=== PATIENT | male | born 1945 | race Caucasian/White ===

== ENCOUNTER 2016-11-21 17:30 | Inpatient (IN) | payer MEDICARE, MEDICAID ==
[~2016-11-21] VITALS: Ht 165.1 cm; Wt 136.4 kg
--- NOTE | ~2016-11-21 | DS ---
PATIENT'S NAME: PRIYANKA HECK [facility] AGE: 70 Y [address] ROOM: [place] [address] LOCATION: GPCU ADMIT DATE: 11/21/2016 Discharge Summary DISCHARGE DATE: 12/04/2016 FAMILY PHYSICIAN: Rodney Huggins MD ATTENDING PHYSICIAN: Melissa Jacob FINAL DIAGNOSES: 1. Pericardial effusion status post pericardial window. 2. Diabetes mellitus. 3. Paroxysmal atrial fibrillation. 4. Long-term anticoagulation. 5. Sick sinus syndrome, status post permanent pacemaker [employer]. 6. Acute on chronic diastolic congestive heart failure, resolving. 7. Acute kidney injury and chronic kidney disease 3, resolving. 8. History of chronic obstructive pulmonary disease. 9. Morbid obesity. CONSULTATIONS: 1. Cardiology, Dr. Acosta Shelley. 2. Nephrology, Dr. Fontenot. 3. Cardiothoracic Surgery, Dr. Isidro. PROCEDURES: 1. Cardioversion by Dr. Winston. 2. Pericardial window placement by Dr. Isidro. REASON FOR ADMISSION: This is a 70-year-old male who presented with worsening shortness of breath. The patient has morbid obesity and also CPAP and also obstructive sleep apnea. He was transferred from [place] for higher level of care for worsening shortness of breath. Please see Dr. Jacob's admission H and P for further details. DIAGNOSTIC STUDIES: A transthoracic echocardiogram was done on admission showed normal left ventricular contractility, ejection fraction of 60% to 65%, moderate concentric left ventricular hypertrophy, and grade 1 diastolic dysfunction were noted, left atrium mildly dilated, moderate global pericardial effusion with echocardiographic evidence of cardiac tamponade were noted, dilated IVC with poor inspiratory collapse was detected as well. Repeat transthoracic echocardiogram was done and showed ejection fraction 60% with normal left ventricular contractility. Wall motion abnormalities could not be confidently commented on, severe TRAM noted. Remainder of LV segments revealed [id number] hypertrophy, left atrium and right atrium mildly dilated, mild aortic stenosis noted, no evidence of reoccurring pericardial effusion detected, ascending aorta was mildly dilated, trivial TR and DE detected. PATIENT'S NAME: PRIYANKA HECK [facility] AGE: 70 Y [address] ROOM: [place] [address] LOCATION: GPCU ADMIT DATE: 11/21/2016 Discharge Summary DISCHARGE DATE: 12/04/2016 FAMILY PHYSICIAN: Rodney Huggins MD ATTENDING PHYSICIAN: Melissa Jacob EKG was done on admission showed sinus rhythm with possible left atrial enlargement and possible anterolateral ischemia, slight ST changes. ABGs were done on admission, pH of 7.25 on admission, after treatment, the patient's pH was 7.35 subsequently; pCO2 of 67 on admission, 44 subsequently; pO2 of 42 on admission, 72 subsequently. Serial Accu-Cheks were done since the patient is a diabetic and were in the range of 108 to 199. Cardiac enzymes were done on admission, CPK was within normal range. Troponin T less than 0.04, subsequently was 6.41; proBNP was 6566. Serial CBCs were done. White count was essentially normal throughout the course of this hospitalization. Hemoglobin 9.7 on admission, 9.2 at the time of discharge; platelet counts were within normal range. The patient had serial BMPs done. Sodium was within normal range. Potassium was 5.8 on admission, was treated and subsequently was normal throughout the course of this hospitalization. Bicarb level was within normal range. The patient's BUN was 57 on admission and was 81 by the time of discharge. Creatinine 2.3 on admission. The patient had acute kidney injury. This was treated after consultation with Nephrology. On the day of discharge, creatinine was stabilizing and was 1.7. The patient's baseline creatinine is in the 1.7 range. ERNIE had resolved on the day of discharge. Magnesium level 2.1. Albumin 2.3 on discharge. Phos level was within normal range. GFR 40 on discharge, 28 on admission. ESR 73. Hemoglobin A1c 6.7. The patient was placed on a heparin drip briefly for atrial fibrillation that was monitored with PTT levels. INR 1.09 on admission. UA was done and showed few bacteria initially. UA was later repeated for questionable hematuria and showed blood and rbc's, and this had resolved subsequently. TSH 1.23 and subsequently was 1.78. D-dimer 1.87 on admission. Ultrasound of the chest was done on admission for bilateral pleural effusion and showed minimal volume of pleural fluid with the right and left hemithorax. The patient was intubated after cardiothoracic surgery and endotracheal tube was in normal place. Pericardial drain was in place. Edema and atelectasis were noted on chest x-ray. The patient was subsequently extubated, and a chest x-ray repeated showed post pericardial window. Heart and lungs were stable. Chest x-ray was done for repeat and followup of pericardial effusion and showed cardiomegaly with clear lungs. Chest tubes on the right had been removed without complication. Chest tube on the left was still present. No pneumothorax was noted. The patient underwent a V/Q scan to rule out PE. It was an essentially normal V/Q scan with low probability of pulmonary embolism. Chest x-ray was later repeated since the patient had a pacemaker placement. Chest x-ray showed persistent cardiomegaly, but improved pulmonary vascular status. Left-sided pacemaker in good position without apparent complication. Urine culture was negative and showed contaminants. Pericardial fluid culture PATIENT'S NAME: PRIYANKA HECK [facility] AGE: 70 Y [address] ROOM: [place] [address] LOCATION: GPCU ADMIT DATE: 11/21/2016 Discharge Summary DISCHARGE DATE: 12/04/2016 FAMILY PHYSICIAN: Rodney Huggins MD ATTENDING PHYSICIAN: Melissa Jacob showed no growth and no anaerobes were cultured. AFB smear in pericardial fluid showed no acid-fast bacilli. No fungal elements were noted as well. BAL showed no bacteria and rare white blood cells. HOSPITAL COURSE: This is a 70-year-old male, who was transferred from [place] for worsening shortness of breath. The patient has morbid obesity and also chronic respiratory failure and uses CPAP at .s. The patient presented with worsening shortness of breath. An evaluation was done, and the patient was found to have global pericardial effusion with echocardiographic evidence of cardiac tamponade. Dr. Isidro was consulted immediately. The patient underwent a pericardial window placement. He was intubated in the ICU after the surgery. Subsequently, the drains were taken out, and the patient did not have any complication. Repeat echocardiogram showed resolution of the pericardial effusion. Repeat chest x-ray showed resolution and clearing of his lungs. From a breathing standpoint, the patient was still requiring oxygen by the time of discharge. The patient was using 2 L oxygen by the time of discharge at all times. His worsening shortness of breath had resolved and acute hypoxic respiratory failure had resolved as well. A sepsis workup was initiated, and the patient did not show any signs of pneumonia. White count was normal. The patient developed atrial fibrillation with RVR. He underwent cardioversion with Dr. Winston. He was placed on a heparin drip subsequently for long-term anticoagulation needs. The patient did develop some bradycardia. There was concern for sick sinus syndrome. Dr. Acosta Shelley was consulted. The patient underwent permanent pacemaker placement. Subsequently, the procedure was uncomplicated. The patient was being diuresed by Nephrology off and on with IV diuretics. At the time of discharge, he was placed on his home diuretic regimen and was diuresing nicely. The patient had developed acute kidney injury during this admission. Diuretics were backed off for a few days, and subsequently, the patient's acute kidney injury had resolved by the time of discharge. The patient has chronic kidney disease stage 3. Nephrology followed up closely with the patient. The patient was to be discharged on Thursday, December 01, 2016; however, he developed atrial fibrillation with RVR. The patient's discharge was held. He was placed on Cardizem drip and subsequently was transitioned to p.o. medications, this resolved. The next day, the patient was to be discharged on 12/02/2016 to [facility], however, he developed RENIE. On the day of discharge, the patient's ERNIE had resolved. The patient continued to do well, and he was discharged to [facility] in stable condition by Dr. Khan. Accepting physician was Dr. Gomez. I had contacted Dr. Gomez on Thursday, December 01, 2016, for acceptance. PATIENT'S NAME: PRIYANKA HECK [facility] AGE: 70 Y [address] ROOM: [id number] [place] [id number] LOCATION: GPCU ADMIT DATE: 11/21/2016 Discharge Summary DISCHARGE DATE: 12/04/2016 FAMILY PHYSICIAN: Rodney Huggins MD ATTENDING PHYSICIAN: Melissa Jacob DISCHARGE INSTRUCTIONS: The patient was discharged to [facility] in stable condition by Dr. Khan on 12/04/2016. He is to follow up with his primary care physician, Dr. Rodney Huggins in 3-4 days' time. PCP to check a CBC and a BMP. PCP also to check a digoxin level. The patient to follow up with Dr. Acosta Shelley in 2 weeks in [place]. Follow up with Nephrology in 1 month. The patient is a full code patient. He is on a diabetic and low-salt diet. He is on fluid restriction 1.5 L per day. Calorie count is not needed. The patient is not n.p.o. The patient recently underwent a pacemaker placement. He is advised no lifting or raising his left arm above the head. He is to wear a left arm sling for 1 week. May discontinue on December 07, 2016. PT and OT to evaluate and treat as indicated. O2 p.r.n. to keep sats more than 90%. The patient uses 2 L oxygen at all times. Accu-Cheks a.c. and h.s. advised. The patient does not have a urinary catheter. He may not have alcoholic beverages. Rehab potential is fair. Discharge potential is fair. The patient and family aware of condition and prognosis and were updated by me. The patient was discharged by Dr. Khan. Selene crush appropriate medications. DISCHARGE MEDICATIONS: 1. Allopurinol 300 mg p.o. daily for gout. 2. Amiodarone 200 mg p.o. b.i.d. for atrial fibrillation, new medication. 3. Aspirin 81 mg p.o. daily for CAD, new medication. 4. Lipitor 80 mg p.o. daily for dyslipidemia, new medication. 5. Celexa 20 mg p.o. daily for depression. 6. Pepcid 20 mg p.o. b.i.d. for GERD. 7. Digoxin 62.5 mcg p.o. daily for atrial fibrillation, new medication. 8. Duragesic fentanyl patch 50 mcg transcutaneously every 72 hours for pain. 9. Hydrochlorothiazide 25 mg p.o. daily for hypertension. 10. Mucinex 600 mg p.o. b.i.d. for cough, new medication. 11. Toujeo insulin 20 units subcutaneous at h.s. for diabetes mellitus. 12. Humalog insulin mild sliding scale with Accu-Cheks for diabetes mellitus. 13. Levothyroxine 50 mcg p.o. daily before breakfast for hypothyroidism. 14. Lisinopril 5 mg p.o. daily for hypertension, dose decreased. 15. Claritin 10 mg p.o. daily for allergies. 16. Magnesium oxide 400 mg p.o. b.i.d. for supplement. 17. Lopressor 25 mg p.o. b.i.d. for atrial fibrillation, new medication. 18. Flomax 0.4 mg p.o. q.h.s. for BPH. 19. Demadex 20 mg p.o. 3 days per week on Sunday, Sunday, and Sunday for CHF. 20. Xarelto 15 mg p.o. daily for long-term anticoagulation and atrial fibrillation, new medication. 21. Breo Ellipta 200/25 mcg inhalation 1 puff inhalation every day for COPD. 22. Spiriva HandiHaler 1 vial inhalation every day for COPD. 23. Tylenol 650 mg p.o. q.4 hours p.r.n. pain/fever. PATIENT'S NAME: PRIYANKA HECK [facility] AGE: 70 Y [address] ROOM: [place] [address] [facility] ADMIT DATE: 11/21/2016 Discharge Summary DISCHARGE DATE: 12/04/2016 FAMILY PHYSICIAN: Rodney Huggins MD ATTENDING PHYSICIAN: Melissa Jacob 24. Klonopin 1 mg p.o. q.h.s. for anxiety. 25. Clotrimazole with betamethasone cream 1 application topically every day p.r.n. affected area for rash. 26. Glucagon 1 mg subcutaneous for hypoglycemia p.r.n., new medication. 27. Glucose 16 g p.o. for hypoglycemia p.r.n. 28. Milk of magnesia 30 mL p.o. daily p.r.n. constipation. 29. Ditropan 10 mg p.o. daily for overactive bladder. 30. Vitamin B12 100 mcg p.o. daily for supplement. 31. Vitamin D3 2000 units p.o. daily supplement. 32. Welchol 625 mg p.o. b.i.d. for diabetes. 33. Promethazine/codeine 5-10 mL p.o. q.6 hours p.r.n. cough. 34. Mucinex 1 tablet p.o. b.i.d. 1200/120 mg tab. 35. Pyridoxine 50 mg p.o. daily supplement. 36. Actigall 300 mg p.o. b.i.d. 37. Nitrostat 0.4 mg sublingual q.5 minutes p.r.n. chest pain take 1 tablet may take up to 3 doses every 5 minutes, if pain persists seek medical attention. 38. Symbicort 160/4.5 mcg inhalation 1 puff inhalation every night at bedtime for COPD. This patient was managed by hospitalist, Nephrology, Cardiology, and Cardiothoracic Surgery teams during this admission. VICKIE ANDERSON MD MT/modl /[id number] CC: Brady Gomez MD d: 12/05/16 0415 t: 12/17/16 1539, DISCHARGE SUMMARY
--- NOTE | ~2016-11-21 | ECHO ---
Transthoracic Echocardiography Report (TTE) Demographics Patient Name PRIYANKA HECK Date of Study 11/24/2016 Patient Number [id number] Visit Number [id number] Date of 1945 Room Number G6316 Gender Male Number Age 70 year(s) Referring Joseluis Lara MD Cigarette Carton Sealer Kathy Clark RVT, Physician Nidia Arreguin RDCS MD Renetta Lorenzo MD Physician Interpreting Catrachito Ghosh [employer] Business Analyst Physician Supervising Ordering Catrachito Ghosh MD/MLP Physician Nurse Stress Boiler Out Conclusions Contractility Score Summary Normal Left Ventricular contractility was noted. Summary The estimated left ventricular ejection fraction is 60%.WMAs cannot be confidently commented on.LV internal dimension is normal.Severe TRAM noted.Remainder of LV segments reveal mild to moderate hypertrophy. The left atrium is mildly dilated. The right atrium is mildly dilated. Mild aortic sclerosis. Moderate calcification of the posterior leaflet of the mitral valve with restriction of movement. No evidence of reoccuring pericardial effusion. The ascending aorta appears mildly dilated. The maximum diameter measures 3.9 cm. Trivial TR and RI. Procedure Type of Study TTE procedure:2D Echocardiogram. Procedure Date Date: 11/24/2016 Start: 10:36 PM Study Location: Inpatient Portable Technical Quality: Adequate visualization Indications:Atrial Fibrillation w/ RVR. Appropriate Use Criteria: 8 Patient Status: STAT Rhythm: NSR HR: 90 bpm BP: 112/64 mmHg M-Mode/2D Measurements LV Diastolic Dimension: 4.84 cm LV Systolic Dimension: 3.31 cm LV Septum Diastolic: 2.13 cm LV PW Diastolic: 1.39 cm AO Root Dimension: 2.9 cm Cardiac Output: 7.01 l/min AV Cusp Separation: 2.1 cm RV Diastolic Dimension: 2.69 cm LA volume: 88 ml LVOT: 2.2 cm RV Base: 3.68 cm LVOT VTI: 20.5 cm RV Mid: 8.55 cm LV Stroke volume: 77.89 ml TDI-S': 12.7 cm/s Doppler Measurements AV Peak Velocity: 2.21 m/s MV Peak E-Wave: 1.21 m/s AV Peak Gradient: 19.54 mmHg MV Peak A-Wave: 1.47 m/s AV Mean Gradient: 11 mmHg MV E/A Ratio: 0.82 LVOT Peak Velocity: 1.24 m/s MV P1/2t: 75 msec TR Gradient:17.31 mmHg PV Peak Velocity: 1.47 m/s Estimated RAP:5 mmHg PV Peak Gradient: 8.64 mmHg Estimated RVSP: 22 mmHg Estimated PASP: 22.31 mmHg E' Septal Velocity: 0.07 m/s A' Septal Velocity: 0.12 m/s E' Lateral Velocity: 0.07 m/s A' Lateral Velocity: 0.18 m/s Findings Left Ventricle Severe TRAM and mild to moderate hypertrophy involving the rest of LV wall segments.LV internal dimension is normal.LVEF is probably normal.WMAs cannot be confidently commented on. Right Ventricle Normal right ventricle structure and function. Left Atrium The left atrium is mildly dilated. There is no evidence of patent foramen ovale or atrial septal defect by color Doppler. Right Atrium The right atrium is mildly dilated. IVC measures 1.96 cm with inspiratory collapse. Mitral Valve Moderate calcification of the posterior leaflet of the mitral valve with restriction of movement. Aortic Valve The aortic valve is mildly sclerotic. Tricuspid Valve Trivial tricuspid regurgitation by color Doppler. Pulmonic Valve Trivial pulmonic valve regurgitation by color Doppler. Pericardial Effusion No evidence of reoccuring pericardial effusion. Miscellaneous The ascending aorta appears mildly dilated. The maximum diameter measures 3.9 cm. Pleural Effusion No evidence of pleural effusion. Contractility Score LV regional wall motion:(0-Non visualized 1-Normal 2-Hypokinesis 3-Akinesis 4-Dyskinesis 5-Aneurysm) Signature dtt: Davina Winston dtd: 11/24/16 2236 Physician Self Edit
--- NOTE | ~2016-11-21 | ECHO ---
Transthoracic Echocardiography Report (TTE) Demographics Patient Name PRIYANKA HECK Date of Study 11/21/2016 Patient Number [id number] Visit Number [id number] Date of 1945 Room Number G6334 Gender Male Number Age 70 year(s) Referring [place] Agent Jamey HOUGH, RDCS Physician Karen Physician Interpreting Daphney Shane MD Tool Honing Machine Set Up Operator Physician Supervising Ordering Nidia Arreguin MD, MD/MLP Physician Nurse Stress Poacher Wringer Operator Conclusions Contractility Score Summary Normal Left Ventricular contractility was noted. Summary The estimated left ventricular ejection fraction is 60-65%. Moderate concentric left ventricular hypertrophy. Diastolic assessment reveals Grade I diastolic dysfunction. The left atrium is mildly dilated. Moderate global pericardial effusion. There is echocardiographic evidence of cardiac tamponade. Dilated IVC with poor inspiratory collapse. Procedure Type of Study TTE procedure:2D Echocardiogram, M-Mode, Doppler , Color Doppler. Procedure Date Date: 11/21/2016 Start: 06:45 PM Study Location: Inpatient Portable Technical Quality: Adequate visualization Indications:Pericardial effusion. Appropriate Use Criteria: 9 Patient Status: STAT HR: 61 bpm BP: 133/70 mmHg M-Mode/2D Measurements LV Diastolic Dimension: 3.84 cm LV Systolic Dimension: 2.59 cm LV Septum Diastolic: 1.53 cm LV PW Diastolic: 1.63 cm AO Root Dimension: 2.9 cm Cardiac Output: 7.67 l/min AV Cusp Separation: 1.7 cm RV Diastolic Dimension: 2.51 cm LA volume: 67 ml LVOT: 2.2 cm RV Base: 2.29 cm LVOT VTI: 33.1 cm RV Mid: 2.36 cm LV Stroke volume: 125.76 ml TAPSE: 2.48 cm TDI-S': 20.2 cm/s Doppler Measurements AV Peak Velocity: 1.85 m/s MV Peak E-Wave: 1.1 m/s AV Peak Gradient: 13.69 mmHg MV Peak A-Wave: 1.34 m/s AV Mean Gradient: 7 mmHg MV E/A Ratio: 0.82 LVOT Peak Velocity: 1.21 m/s MV P1/2t: 82 msec PV Peak Velocity: 1.08 m/s E' Septal Velocity: 0.07 m/s PV Peak Gradient: 4.67 mmHg E' Lateral Velocity: 0.08 m/s A' Septal Velocity: 0.09 m/s A' Lateral Velocity: 0.09 m/s Findings Left Ventricle Moderate concentric left ventricular hypertrophy. Diastolic assessment reveals Grade I diastolic dysfunction. Right Ventricle Normal right ventricle structure and function. Left Atrium The left atrium is mildly dilated. Right Atrium Normal right atrial size. Mitral Valve Trivial mitral regurgitation by color Doppler. Aortic Valve The aortic valve is mildly sclerotic. Tricuspid Valve Trivial tricuspid regurgitation by color Doppler. Pulmonic Valve Trivial pulmonic valve regurgitation by color Doppler. Pericardial Effusion Moderate global pericardial effusion. No echocardiographic evidence of cardiac tamponade. Miscellaneous Dilated IVC with poor inspiratory collapse. Pleural Effusion No evidence of pleural effusion. Contractility Score LV regional wall motion:(0-Non visualized 1-Normal 2-Hypokinesis 3-Akinesis 4-Dyskinesis 5-Aneurysm) Signature dtt: cAosta Shelley (cardio) dtd: 11/21/16 1845 Physician Self Edit
--- NOTE | ~2016-11-21 | HP ---
PATIENT'S NAME: PRIYANKA HECK [facility] AGE: 70 Y [address] ROOM: [id number] [place], [place] [address] LOCATION: GPCU ADMIT DATE: 11/21/2016 History & Physical DISCHARGE DATE: FAMILY PHYSICIAN: PHYSICIAN, UNKNOWN ATTENDING PHYSICIAN: LOUIS CAROLINA DATE OF SERVICE: CHIEF COMPLAINT: Worsening shortness of breath. HISTORY OF PRESENT ILLNESS: This is a 70-year-old male with history of obstructive sleep apnea on CPAP at night and also 4 L of oxygen at night, morbidly obese, who is transferred from [place] to [facility] for higher level of care. History as obtained from the patient, he reported since yesterday that he has been more short of breath requiring oxygen; however, story as obtained from the EMS team through the home health who goes into visit the patient reported that the patient's symptoms had started since last week, which is for the past 6 days. The patient has been more short of breath during the day time requiring continuous use of oxygen. At baseline, he does not use oxygen during the daytime, only at nighttime. So, for the past 6 days, family has been putting the patient on 4 L of oxygen. However, today, when the home health nurse went in to visit with the patient, they had to increase the oxygen to 5 L of nasal cannula still with the saturation in the late 80s. So, based on this, they decided to transfer the patient into the emergency room. On arrival into the emergency room, at [place], the patient was found to be hypoxic and also short of breath. He was put on BiPAP and his ABG prior to being on BiPAP was pCO2 of 67.2, pH of 7.22, PO2 of 101. One hour later, the repeat ABG was pCO2 of 57.2 with a pH of 7.26 and PO2 was 64. They did get a CT of the chest without contrast, which revealed mild pericardial effusion. Based on this, they decided to contact Dr. Shelley as probably this may be responsible for the patient's symptoms. CT chest also did show some bilateral [id number] pleural effusion as well. The patient also did note he has chronic cough; however, for the last 1-2 months the frequency of the cough has increased as well as the production of the phlegm. He describes the color as yellowish. Denies fever. Denies any chest pain. Denies abdominal pain. Denies any increase in his leg swelling, which is chronic and denies abdominal distention. Denies headache or neck pain. The patient reports he stopped smoking since 1981; however, his is still an active smoker. Denies diarrhea or urinary symptoms. He denies paroxysmal nocturnal dyspnea. He states he usually sleeps with 1-2 pillows. REVIEW OF SYSTEMS: The 13 elements of review of systems were asked and as documented in the HPI. PATIENT'S NAME: PRIYANKA HECK [facility] AGE: 70 Y [address] ROOM: [id number] [place] [id number] LOCATION: GPCU ADMIT DATE: 11/21/2016 History & Physical DISCHARGE DATE: FAMILY PHYSICIAN: PHYSICIAN, UNKNOWN ATTENDING PHYSICIAN: LOUIS CAROLINA The others are negative. PAST MEDICAL HISTORY: Chronic obstructive sleep apnea, essential hypertension, diabetes, history of myocardial infarction, depression, hypomagnesemia, and chronic bilateral lower extremity edema. PAST SURGICAL HISTORY: Coronary stent placement. SOCIAL HISTORY: He lives with his . Drinks wine occasionally once per week. Stopped smoking since 1981. However, still smokes, so he is a secondhand smoker. FAMILY HISTORY: Father at the age of 74 from myocardial infarction. Mother too has . Her brother with hypertension. PHYSICAL EXAMINATION: VITAL SIGNS: In PCU, oxygen saturation 91% on 45% of FiO2, heart rate 61, blood pressure 133/70, respiratory rate 21, and temperature 97.8. GENERAL: Reveals a morbidly obese male who is in mild respiratory distress on BiPAP. He is alert, awake, oriented x3. NEUROLOGIC: Cranial nerves 2 through 12 are intact bilaterally. Sensory is intact bilaterally. Power is 4/5 in all the extremities. HEENT: Normocephalic, atraumatic. Pupils are equal and reactive to light bilaterally. Pharynx is unable to examine thoroughly because of the BiPAP mask that is on. NECK: Short, it is obese. Ears: No obvious ear discharge or drainage. CARDIOVASCULAR: Normal S1 and S2. Regular rate and rhythm. Heart sounds are distant, probably secondary to the obese chest wall. CHEST: Decreased breath sounds globally, likely secondary due to obese chest wall. ABDOMEN: Distended, is obese. No area of tenderness, no palpable organomegaly. Positive bowel sounds. EXTREMITIES: He has 1+ bilateral lower extremity pitting pedal edema. No joint swelling or erythema or tenderness. SKIN: No rash or skin breakdown. LABORATORY DATA: Labs at the referral center: ABG as documented in my H and P, WBC 10.9, hemoglobin 9.7, hematocrit 31.9, and platelets are 181. CK-MB 2.1. Troponin 0.031, CRP 3.7, BNP 101, total protein 8.0, albumin 3.3, globulin 4.7. EKG: Normal sinus rhythm at a rate of 71. PATIENT'S NAME: PRIYANKA HECK [facility] AGE: 70 Y [address] ROOM: [id number] [place] [id number] [facility] AD[facility] DATE: 11/21/2016 History & Physical DISCHARGE DATE: FAMILY PHYSICIAN: PHYSICIAN, UNKNOWN ATTENDING PHYSICIAN: LOUIS CAROLINA ASSESSMENT AND PLAN: This is a 70-year-old male, who comes in with worsening shortness of breath. 1. Acute hypoxic respiratory failure, probably secondary to chronic obstructive pulmonary disease exacerbation. However, given the patient's body habitus, he is also at risk of a pulmonary embolism. We will check for D-dimer though this may be elevated secondary to the patient's acute on chronic kidney disease. If it is, then we will most probably get a V/Q scan. Also, differential for acute hypoxic respiratory failure, also concerned for pericardial effusion seen on CT of the chest. The patient is getting an echocardiogram done now. Dr. Shelley is going to follow up and manage accordingly. The third differential also could be secondary to bilateral pleural effusion on CT chest imaging. We will get a chest ultrasound in the morning to further evaluate the severity and the degree of the pleural effusion, present on admission. 2. Chronic obstructive pulmonary disease exacerbation, present on admission. We will start the patient on some Solu-Medrol and also on Levaquin. We will also get a Pulmonary consult. 3. Acute kidney injury versus acute kidney injury on chronic kidney disease. The patient's baseline creatinine is unknown. We will gently hydrate the patient and we will continue to monitor the creatinine level. 4. Diabetes type 2 with hypoglycemia, stable; however, with the Solu-Medrol, which we are going to start, we will put the patient on NovoLog sliding scale aggressive. Note present on admission. 5. Essential hypertension, is stable. Blood pressure is controlled. We will continue the patient on his medication. 6. Obstructive sleep apnea. The patient is currently on BiPAP, we will continue him on this. 7. Acute hypercarbic respiratory failure, present on admission. The patient is currently on BiPAP. We will also consult Pulmonary for further management given the patient's degree of morbid obesity. However, the hypercarbia seems to be improving from his last ABG, which was done at the referral center. We will recheck ABG 1 hour since he has been put on the BiPAP here. The line of management was explained to the patient whose questions were answered and had no further questions at this time. MD JENNA MIRANDA/melody /[id number] D: [id number] T: [id number] HISTORY & PHYSICAL
--- NOTE | ~2016-11-21 | CON ---
PATIENT'S NAME: PRIYANKA HECK [facility] AGE: 71 Y [address] ROOM: [id number] [place], [place] [address] LOCATION: GPCU ADMIT DATE: 11/21/2016 Consultation DISCHARGE DATE: 12/04/2016 FAMILY PHYSICIAN: Rodney Huggins MD ATTENDING PHYSICIAN: Melissa Jacob DATE OF CONSULTATION: 11/22/2016 REFERRING PHYSICIAN: Acosta Shelley MD INDICATION: COPD exacerbation. HISTORY OF PRESENT ILLNESS: This is a 70-year-old male, transferred from [place] for higher level of care. Per report, the patient was noted to have increased shortness of breath and the family was needing to put on his oxygen during the day since last . He normally wears oxygen just at night. He reports no change in shortness of breath though. He has noted an increased cough over the last 2 months. He normally has a chronic cough with yellow sputum at baseline. He has been having home health coming in and recently they noted his oxygen saturations were as low as 80 despite 5 L, so he was taken to the ER for further evaluation. The initial ABG upon arrival was pH of 7.25, pCO2 67, PO2 42, bicarb 29.4, and base excess 0.6. He was placed on BiPAP at that time and then a repeat ABG showed a pH of 7.3, pCO2 59, PO2 of 80, bicarb 29, and base excess 1.4. Recent echo shows an EF of 60-65% with moderate LVH, diastolic dysfunction grade 1, moderate global pericardial effusion. He has a history of COPD, ROSE with CPAP for the last 6 years at least, CAD with NY and PCI, hypertension, and diabetes. Last PFTs were last year, and he follows with Dr. Orta for his COPD. He has typical home regimen includes Symbicort, Spiriva, and albuterol. He reports no history of exacerbations or hospitalizations in regard to his COPD. He normally uses 4 L with his CPAP, but still complains of excessive daytime sleepiness. Overall, he is fairly sedentary at home and uses a cane and/or walker. He also has a history of tobacco use for the last 25 years, 1 pack per day and quit in 1981; however, his does still smoke in the home. CT images were obtained and showed a pericardial effusion with small bilateral pleural effusions as well as bilateral atelectasis and possible infiltrates. Overall, the patient denies any wheezing, hemoptysis, fevers, or chills. He has noted increased lower extremity edema. PAST MEDICAL HISTORY: COPD, ROSE with CPAP, CAD with history of [place] and PCI, hypertension, diabetes, former tobacco use, nocturnal hypoxia, and morbid obesity. ALLERGIES: PATIENT'S NAME: PRIYANKA HECK [facility] AGE: 71 Y [address] ROOM: [id number] [place] [address] LOCATION: GPCU ADMIT DATE: 11/21/2016 Consultation DISCHARGE DATE: 12/04/2016 FAMILY PHYSICIAN: oRdney Huggins MD ATTENDING PHYSICIAN: Melissa Jacob SEE OCT. MEDICATIONS: See OCT. SOCIAL HISTORY: He lives with his and drinks alcohol occasionally. He stopped smoking in 1981 but prior to that, he was 1 pack per day for 25 years. His does still smoke in the house. FAMILY HISTORY: His father at the age of 74 from an [place]. His mother has also . His brother has hypertension. REVIEW OF SYSTEMS: A 12-point review of systems is negative except for what is noted in the HPI. PHYSICAL EXAMINATION: VITAL SIGNS: Blood pressure 159/78, pulse 72, respirations 20, temperature 98.1, he is 95% with FiO2 of 45%. GENERAL: This is a 70-year-old, well-developed, well-nourished, overweight male who is alert and oriented x3, and appears in no acute distress at the time of exam. HEENT: Head: Normocephalic and atraumatic. Eyes, clear. NECK: Supple. No adenopathy. No carotid bruits or JVD. LUNGS: Decreased breath sounds throughout. HEART: Regular rate and rhythm without murmur, gallop, rub. ABDOMEN: Soft, nontender, and nondistended. Bowel sounds x4. EXTREMITIES: No cyanosis or clubbing. 1+ bilateral lower extremity edema. ASSESSMENT AND PLAN: 1. Acute on chronic hypoxic and hypercapnic respiratory failure, multifactorial from chronic obstructive pulmonary disease and pneumonia with bilateral atelectasis and fluid overload. 2. Bilateral pleural effusions, small, due to atelectasis and fluid overload. 3. Pericardial effusion, moderate. 4. Possible pneumonia, community acquired type, on Levaquin. 5. Chronic obstructive pulmonary disease with unknown severity, without exacerbation. 6. Acute kidney injury on (?)chronic kidney disease. 7. Obstructive sleep apnea, on CPAP chronically. PLAN: Okay to proceed with surgery because of imminent cardiac tamponade. May need PATIENT'S NAME: PRIYANKA HECK [facility] AGE: 71 Y [address] ROOM: [place] [address] LOCATION: GPCU ADMIT DATE: 11/21/2016 Consultation DISCHARGE DATE: 12/04/2016 FAMILY PHYSICIAN: Rodney Huggins MD ATTENDING PHYSICIAN: Melissa Jacob to be extubated on BiPAP and he could also benefit from increased PEEP during surgery if blood pressure allows. We will reassess after surgery regarding the need for diuresis, bronchodilator, and steroids. Thank you for the consult and opportunity to participate in the patient's care. ETIENNE BONE APRN FOR MD JACOB BELL/modl /[id number] d: 12/25/162029 t: 01/09/17 1400, CONSULTATION REPORT
--- NOTE | ~2016-11-21 | CON ---
PATIENT'S NAME: PRIYANKA HECK [facility] AGE: 70 Y [address] ROOM: [id number] [place], [place] [address] LOCATION: GPCU ADMIT DATE: 11/21/2016 Consultation DISCHARGE DATE: FAMILY PHYSICIAN: Rodney Huggins MD ATTENDING PHYSICIAN: LOUIS CAROLINA REFERRING PHYSICIAN: Acosta Shelley MD REASON FOR CONSULTATION: Atrial fibrillation. HISTORY OF PRESENT ILLNESS: This is a patient known to Dr. Shelley with history of inferior wall myocardial infarction in 2004, in which he underwent a left heart catheterization in [place], [place] with PTCA and stenting of the left circumflex. He also carries a history of COPD, hypertension, morbid obesity, dyslipidemia, and obstructive sleep apnea. On November 21, he was admitted to [facility] as a transfer from [place]. He had been more short of breath and requiring increased oxygen and therefore he was transferred to a higher level of care. Normally, he did not wear any oxygen at home on a routine basis, but he did have some that he used at nighttime, he had been using it during the day as well. His oxygen saturations had dropped into the 80s and therefore he was seen by his primary care physician. Upon transfer, he was found to be hypoxic, he was put on BiPAP, ABGs were done showing a pCO2 of 67.2 with pH of 7.22. He then underwent a CT of the chest which revealed mild pericardial effusion. He was transferred after they had found the pericardial effusion for further evaluation. He was then seen by Dr. Isidro, for which he underwent a pericardial window and tolerated that procedure well. He was diuresed and there was some concern about elevated creatinine, therefore Nephrology was consulted. His creatinine did increase to 2.3 at the time of the consult. It was felt that he was prerenal. On 11/24, Rapid Response was called because of increased shortness of breath. It was concerned about him having a pulmonary embolus. V/Q scan ruled that as negative or low probability. He was also found to have rapid AFib and underwent a DC cardioversion for the AFib. He was also placed on an amiodarone infusion at that time. Since then, he had had episodes of paroxysmal atrial fibrillation with rapid ventricular response which he does not tolerate very well. He denies any exertional chest pain. He is short of breath with minimal activity, but seems to be very weak, I suspect that he has been ill for quite some time. He has not had any new orthopnea. He does use his CPAP faithfully at night time. There is no report of presyncope or syncopal episodes and he has not had problems with lightheadedness or dizziness. PAST MEDICAL HISTORY: 1. Coronary artery disease. He has had a myocardial infarction. 2. Obstructive sleep apnea, using CPAP. 3. Hypertension. PATIENT'S NAME: PRIYANKA HECK [facility] AGE: 70 Y [address] ROOM: [place] [address] LOCATION: GPCU ADMIT DATE: 11/21/2016 Consultation DISCHARGE DATE: FAMILY PHYSICIAN: Rodney Huggins MD ATTENDING PHYSICIAN: LOUIS CAROL[place] 4. Hyperlipidemia. 5. Paroxysmal atrial fibrillation. 6. Pericardial effusion post pericardial window. 7. COPD. 8. Hypomagnesium. 9. Chronic bilateral lower extremity edema. 10. Diabetes mellitus. 11. Essential hypertension. PAST SURGICAL HISTORY: Per HPI. He had a colonoscopy and an EGD in 2008, epidural steroid injection in 2009. He has had angioplasty x2 with 3 stents. FAMILY HISTORY: Father probably had heart disease and mother is , etiology is unknown. He has siblings, but he does not know their health history. SOCIAL HISTORY: He is . He is a former smoker, he smoked cigarettes as well as a pipe, he smoked for 19 years. He does not drink alcohol. REVIEW OF SYSTEMS: Per HPI. A 13-point review was done. HEMATOLOGIC: He is a little bit anemic, most likely secondary to chronic kidney failure. PULMONARY: He does have COPD and uses CPAP. PHYSICAL EXAMINATION: VITAL SIGNS: His weight on admission was 310. He is 5 feet 5 inches. Blood pressure is 133/70, heart rate is 61. SKIN: Warm, dry, and pink. He does have full luevano. NECK: Soft and supple. LUNGS: Lung sounds were diminished but clear. CV: Currently is regular rate and rhythm with normal S1, S2. His telemetry showing that he is in sinus rhythm. ABDOMEN: Morbidly obese. EXTREMITIES: Show trace to 1+ peripheral edema. He does have a De catheter in place. LABORATORY DATA: His most recent echocardiogram shows a normal EF of 60%, mild aortic stenosis, moderate calcification of the mitral valve with restriction of the movement, with resolution of the pericardial effusion. His CBC: 10.6 hemoglobin, 10.8 white count. His BUN was 42, creatinine 1.3, potassium is 4.4, magnesium 1.8. ESR is 73. He is on heparin as well as amiodarone. He had a TSH done on PATIENT'S NAME: PRIYANKA HECK [facility] AGE: 70 Y [address] ROOM: [id number] [place] [address] [facility] DATE: 11/21/2016 Consultation DISCHARGE DATE: FAMILY PHYSICIAN: Rodney Huggins MD ATTENDING PHYSICIAN: LOUIS CAROLINA admission which was normal. ASSESSMENT: 1. Paroxysmal atrial fibrillation. We are going to continue the amiodarone once the infusion is complete. We will start him on p.o. dose. We will discuss when it is okay to start him on NOAC therapy. 2. Chronic obstructive pulmonary disease. He will continue with his current treatment and CPAP therapy. 3. Diabetes mellitus. He will continue with current medications. The assessment and plan, history of present illness, and physical exam are per Dr. Shelley. We would like to thank Dr. Carolina for allowing us to participate in the patient's care. LO ALVAREZ APRN FOR MD LUCAS BYNUM/meredithl /[id number] d: 11/28/162306 t: 12/22/1621, CONSULTATION REPORT
--- NOTE | ~2016-11-21 | CON ---
PATIENT'S NAME: PRIYANKA HECK [facility] AGE: 70 Y [address] ROOM: [address] [place], [place] [address] LOCATION: GPCU ADMIT DATE: 11/21/2016 Consultation DISCHARGE DATE: FAMILY PHYSICIAN: Rodney Huggins MD ATTENDING PHYSICIAN: LOUIS CAROLINA DATE OF CONSULTATION: 11/25/2016 REFERRING PHYSICIAN: Acosta Shelley MD REQUESTING PHYSICIAN: Davina Winston MD. REASON FOR CONSULTATION: Elevated BUN and creatinine. HISTORY OF PRESENT ILLNESS: The patient is a 70-year-old, morbidly obese, white male with a history of diabetes disease diagnosed about a year ago. He also has history of hypertension for quite some time. In 2009 when he was in the hospital, his creatinine had gone up to a maximum 1.6. I do not have the records available at this time, but this patient did have an ultrasound which showed some cortical thinning of the kidneys. The patient does have obstructive sleep apnea. He got admitted to the hospital this time with hypoxic respiratory failure from exacerbation of COPD. His outpatient medication does include Prinivil. He denies taking any nonsteroidals or PINZON-2 inhibitors, but he is normally on narcotics. His creatinine during this admission was up to 2.3 and today it has improved to 1.4. Dr. Winston was concerned because of persistent elevation of creatinine and asked me to see this gentleman for a nephrology consultation. REVIEW OF SYSTEMS: GENERAL: He denies any fever, chills, or rigors. HEENT: Denies any sore throat or sinus congestion. CARDIOVASCULAR: Denies any chest pain, but he has palpitation. RESPIRATORY: Denies any shortness of breath at rest, but he has dyspnea on exertion. GI: Denies any abdominal pain, nausea, or vomiting. : Denies any dysuria. He has some symptoms suggestive of prostatism. MUSCULOSKELETAL: Denies any joint pain or swelling. SKIN: Denies any rash or pruritus. IMMUNOLOGIC: Denies any allergies or hay fever. LYMPHATIC: Denies any lymph node enlargement. HEMATOLOGIC: Denies any easy bruising. ENDOCRINE: Denies any heat or cold intolerance. PSYCHIATRY: Denies any sadness, crying spells, poor concentration, or panic PATIENT'S NAME: UMANG, [facility] AGE: 70 Y [address] ROOM: [place] [address] LOCATION: GPCU ADMIT DATE: 11/21/2016 Consultation DISCHARGE DATE: FAMILY PHYSICIAN: Rodney Huggins MD ATTENDING PHYSICIAN: LOUIS CAROLINA. ALLERGIES: NO KNOWN DRUG ALLERGIES. MEDICATIONS: 1. Albuterol inhaler 2.5 q.6 hours. 2. Dulera one puff q.h.s. handheld as prescribed. 3. Heparin intravenously per protocol. 4. Levaquin 750 mg IV q.h.s. 5. Aspirin 81 mg a day. 6. Celexa 20 mg a day. 7. Claritin 10 mg a day. 8. Deltasone 20 mg a day. 9. Flomax 0.4 mg q.h.s. 10. Humibid LA 600 mg twice a day. 11. Levothyroxine 50 mcg a day. 12. Lipitor 80 mg a day. 13. Pepcid 20 mg a day. 14. Zestril 5 mg a day. 15. Zebeta 5 mg half a day. 16. Zyloprim 300 mg a day. 17. NovoLog 100 units a day. 18. Duragesic 50 mcg a day. PAST MEDICAL HISTORY: Morbid obesity, diabetes mellitus, obstructive sleep apnea, COPD, coronary artery disease, status post myocardial infarction, depressive illness, hypomagnesemia, history of acute kidney injury in 2009, chronic bilateral lower extremity edema. PAST SURGICAL HISTORY: Coronary artery stent placement. SOCIAL HISTORY: The patient lives at home with his . Quit smoking in 1981. Occasionally drinks alcohol. FAMILY HISTORY: Father at the age of 74 because of myocardial infarction. Brother has history of hypertension. His brother who had diabetes, also on dialysis. PHYSICAL EXAMINATION: GENERAL APPEARANCE: A 70-year-old, morbidly obese, white male, lying in the hospital bed, not in acute distress. PATIENT'S NAME: UMANG [facility] AGE: 70 Y [address] ROOM: [place] [address] LOCATION: GPCU ADMIT DATE: 11/21/2016 Consultation DISCHARGE DATE: FAMILY PHYSICIAN: Rodney Huggins MD ATTENDING PHYSICIAN: LOUIS CAROLINA VITAL SIGNS: Temperature 98.3, pulse 92, systolic blood pressure 154, diastolic 87. HEAD: Normocephalic. EENT: Pupils are round and equal. Normal eyelid and conjunctivae. Oral cavity clear. Moist mucosa. NECK: Trachea is central. No thyromegaly. Unable to evaluate jugular venous pulsation. HEART: Heart sounds are audible in all the areas without any gallop or murmur. Pulses irregularly irregular. LUNGS: Diminished breath sounds as whole due to obesity. No rales or expiratory wheeze. ABDOMEN: Obese, soft, nontender. Could not palpate the liver or spleen. EXTREMITIES: He has no clubbing or cyanosis. SKIN: No sign of vasculitis. LYMPHATICS: I did not examine lymphatics. He does have 1+ leg edema bilaterally. NEUROLOGIC: He is alert and grossly nonfocal. HIGHER PSYCHIATRIC FUNCTION: Normal speech and memory. LABORATORY DATA: Sodium 142, potassium 4.5, chloride 100, bicarb 27, BUN 50, creatinine 1.4. Calcium 8.7, albumin 2.4, phosphorus of 2.8. ASSESSMENT: 1. Acute kidney injury most likely this is from prerenal etiology. The patient has been on Prinivil, he came in with acute hypoxic respiratory failure and chronic obstructive pulmonary disease exacerbation. Creatinine went up to 2.3 and now gradually improving to 1.4 now. His baseline is probably 1.1. 2. Diabetes mellitus. 3. Hypertension. 4. Coronary artery disease. 5. Obstructive sleep apnea. 6. Leg edema. PLAN: I explained to the patient that he has history of diabetes, hypertension, coronary artery disease. 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 His ultrasound from 2009 did show some cortical thinning. His kidney therefore vulnerable to volume changes. Advise him not to take any nonsteroidals or PINZON- 2 inhibitors ever. I agree with continuing him on CHACHO inhibitor for renal protection. I advised him to have good control of his diabetes and blood pressure and also to lose weight. We could use p.r.n. dose of diuretics for him for his leg edema. The plan is to watch his salt and water intake. The patient has 1+ protein in the urine probably from diabetes. Note is that he PATIENT'S NAME: PRIYANKA HECK [facility] AGE: 70 Y [address] ROOM: [id number] [place], [place] [address] [facility] ADMIT DATE: 11/21/2016 Consultation DISCHARGE DATE: FAMILY PHYSICIAN: Rodney Huggins MD ATTENDING PHYSICIAN: LOUIS CAROLINA had plenty of rbc's in the urine. He has a De catheter, so maybe this is traumatic in nature. I would like to thank Dr. Winston for allowing me to participate in this patient's care. M MD TRESSA RUIZ/melody /[id number] CC: Rodney Huggins MD d: 11/25/16 1617 t: 11/27/16 0853, CONSULTATION REPORT
--- NOTE | ~2016-11-21 | OR ---
PATIENT'S NAME: PRIYANKA GONZALEZ [facility] AGE: 70 Y [address] ROOM: [address] [address] LOCATION: GPCU ADMIT DATE: 11/21/2016 OR/Procedure Report DISCHARGE DATE: FAMILY PHYSICIAN: Rodney Huggins MD ATTENDING PHYSICIAN: LOUIS CAROLINA SURGEON: Raul Winters DO ELASTIC ATTACHER CHAINSTITCH: DATE OF PROCEDURE: 11/22/2016 PREOPERATIVE DIAGNOSIS: Pericardial effusion with tamponade changes on echocardiogram. POSTOPERATIVE DIAGNOSIS: Pericardial effusion with tamponade changes on echocardiogram. PROCEDURE: Pericardial subxiphoid approach to pericardial window. REFERRING: Acosta Shelley MD. BRIEF HISTORY: Mr. Gonzalez is a 70-year-old white male with the above-noted diagnosis. He has been brought to the operative suite today in an urgent fashion for pericardial effusion. He is currently on BiPAP, markedly short of breath. Echocardiogram has shown a large volume pericardial effusion with tamponade changes. He was intubated without difficulty and his pressures remain quite stable, sterilely prepped and draped in usual fashion and the incision was carried out over the xiphoid onto the anterior epigastrium and dissection was carried out through the adipose tissue through the fascia. We then divided the cartilaginous xiphoid and retracted the area and I identified the tense pericardium. We then opened the pericardium sharply and the fluid was yellowish and serous in nature. No evidence of blood or pericardial tissue changes were noted. An aliquot of fluid was sent for microbiologic and cytologic sampling. We also took the portion of the pericardium as well and placed a 19-Estonian Richardson drain through separate stab incision in the pericardial space. The incision was then closed in a layered fashion 0 Vicryl, 2-0 Vicryl, and 4-0 Monocryl. Chest tube was secured with 2-0 silk and the patient was transferred to the intensive care unit in an intubated fashion secondary to his hypoxia pre-existing and marked work of breathing changes. We would allow him to weaned slowly from the ventilator. He tolerated overall very well and was transferred without incident. RAUL WINTERS DO PATIENT'S NAME: PRIYANKA GONZALEZ [facility] AGE: 70 Y [address] ROOM: [place] [address] [facility] ADMIT DATE: 11/21/2016 OR/Procedure Report DISCHARGE DATE: FAMILY PHYSICIAN: Rodney Huggins MD ATTENDING PHYSICIAN: LOUIS CAROLINA/melody /[id number] d: 11/28/16 1858 t: 11/29/16 0743, OPERATIVE SUMMARY
--- NOTE | ~2016-11-21 | OR ---
PATIENT'S NAME: PRIYANKA GONZALEZ [facility] AGE: 70 Y [address] ROOM: [place] [address] LOCATION: GPCU ADMIT DATE: 11/21/2016 OR/Procedure Report DISCHARGE DATE: 12/04/2016 FAMILY PHYSICIAN: Rodney Huggins MD ATTENDING PHYSICIAN: Melissa Jacob SURGEON: Acosta Shelley MD DINING ROOM HOST/HOSTESS: DATE OF PROCEDURE: 11/28/2016 INDICATIONS: Sick sinus syndrome with prolonged pauses PROCEDURE: Dual chamber pacemaker implantation COMPLICATIONS: None PROCEDURE/FINDINGS: Mr. Gonzalez was brought to the cardiac catheterization lab in the fasting state and prepped draped in the normal manner. 1% lidocaine was used for local skin analgesia to the left infraclavicular region. Subsequently an 18 gauge Cook needle was advanced into the left subclavian vein. 0.025 wire was placed. Needle was removed. A second access was also obtained with an 18 gauge Cook needle. 0. 025 wire was placed. The proximal ends of these wires attached to the surgical gown with a hemostat. Attention was then turned towards creation of the pacemaker pocket where additional 1% lidocaine was given. Next, a #11 blade was used for primary skin incision. Using Bovie cautery as well as blunt dissection, pectoralis fascia was identified. This is entered into and dissected both cephalad as well as caudally. The previously placed 0.025 wires were brought through the skin into the pacemaker pocket. First wire had a 7F sheath placed onto it. Wire and dilator were removed. Subsequently the right ventricular lead was placed. This is a [place] [employer], model #7742. Serial #[id number]. Thresholds were obtained showing a sensing R wave of 13 mV, threshold 0.5 at 0.4 milliseconds pulse width. Impedance is 752 ohms. The anchor sleeve was sewn into the pectoralis muscle with two interrupted sutures of zero silk. Following this the second wire had a 7F sheath placed onto it. Wire and dilator were removed. Using fluoroscopic guidance, the right atrial lead was placed. This is a [place] [employer], [employer], model #7741, serial #[id number]. Thresholds were obtained showing a sensing P wave of 2.1 mV, threshold of 0.9 volts at 0.4 milliseconds pulse width, impedance of 634 ohms. The anchor sleeve was sewn into the pectoralis muscle with two interrupted sutures of zero silk. Following this both of these leads were then connected to the pacemaker generator. This is a [place] [employer]SSENT[employer], model #L111, serial PATIENT'S NAME: PRIYANKA GONZALEZ [facility] AGE: 70 Y [address] ROOM: [place] [address] LOCATION: GPCU ADMIT DATE: 11/21/2016 OR/Procedure Report DISCHARGE DATE: 12/04/2016 FAMILY PHYSICIAN: Rodney Huggins MD ATTENDING PHYSICIAN: Melissa Jacob #[id number]. The generator with the connected leads were then placed into the pacemaker pocket. Subcutaneous tissue was closed with 2-0 Vicryl in a running fashion. Following this the subcuticular layer was closed with 4.0 Vicryl also in a running fashion. Steri-strips were applied as well as a pressure dressing. The patient was placed into a shoulder immobilizer prior to the start of the study. CONCLUSION: 1. Dual chamber pacemaker implantation for sick sinus syndrome. 2. Patient instructed not to use his left arm for the next one week. 3. Patient will be instructed on the use of the home remote monitoring Mirza system. 4. Patient will follow up with me in the outpatient clinic in two weeks. 5. 6. MD MIHAELA BYNUM/sussy /[id number] CC: [employer] CARDIOPULMINARY d: 12/20/16 1159 t: 12/22/16 0924, OPERATIVE SUMMARY
--- NOTE | ~2016-11-21 | OR ---
PATIENT'S NAME: PRIYANKA HECK [facility] AGE: 70 Y [address] ROOM: [place] [address] LOCATION: GPCU ADMIT DATE: 11/21/2016 OR/Procedure Report DISCHARGE DATE: FAMILY PHYSICIAN: Rodney Huggins MD ATTENDING PHYSICIAN: LOUIS CAROLINA SURGEON: Davina Winston MD WEB DEVELOPMENT CONSULTANT: DATE OF PROCEDURE: 11/24/2016 PROCEDURE PERFORMED: Cardioversion. DESCRIPTION: I was called to see the patient regarding atrial fibrillation with rapid ventricular response with heart rate in the 200s to 230s along with significant amount of chest pain, which he admitted to later. I started treating him with intravenous amiodarone, and after 2 boluses as he is a very large man, with AP paddle placement, using synchronized cardioversion, almost 360 joules was delivered, with him going back to sinus rhythm right away. The patient was started on appropriate dose of heparin. He will continue on Cordarone for the time being, and we will try to evaluate the reasons why his heart rate was so high. MD HILARY CASTRO/melody /[id number] d: 11/28/16 1612 t: 12/18/16 1449, OPERATIVE SUMMARY
[2016-11-21] MEDS ORDERED: LOPRESSOR50 MG PO (19:23)
[2016-11-21] MEDS ORDERED: PRILOSEC20 MG PO (19:23)
[2016-11-21] MEDS ORDERED: DELTASONE20 MG PO (19:28)
[2016-11-21] MEDS ORDERED: DEMADEX20 MG PO (19:29)
[2016-11-21] MEDS ORDERED: DITROPAN XL10 MG PO (19:30)
[2016-11-21] MEDS ORDERED: KLONOPIN1 MG PO (19:30)
[2016-11-21] MEDS ORDERED: PRINIVIL (ZESTRI5 MG PO (19:31)
[2016-11-21] MEDS ORDERED: CLARITIN10 MG PO (19:32)
[2016-11-21] MEDS ORDERED: VITAMIN B-12100 MCG PO (19:33)
[2016-11-21] MEDS ORDERED: MAG-OX-400(241400 MG PO (19:33)
[2016-11-21] MEDS ORDERED: BREO ELLIPTA 21 EACH INH (19:34)
[2016-11-21] MEDS ORDERED: VITAMIN D-32000 UNI1 PO (19:34)
[2016-11-21] MEDS ORDERED: WELCHOL 625MG625 MG PO (19:36)
[2016-11-21] MEDS ORDERED: DURAGESIC 50MC50 MCG TRANS (19:37)
[2016-11-21] MEDS ORDERED: NORVASC5 MG PO (19:37)
[2016-11-21] MEDS ORDERED: MOBIC15 MG PO (19:37)
[2016-11-21] MEDS ORDERED: FLOMAX0.4 MG PO (19:38)
[2016-11-21] MEDS ORDERED: SIMVASTATIN10 MG PO (19:39)
[2016-11-21] MEDS ORDERED: SPIRIVA HANDIHA1 KIT INH (19:39)
[2016-11-21] MEDS ORDERED: TYLENOL WITH C1 EACH PO (19:40)
[2016-11-21] MEDS ORDERED: PROMETH-CODEIN 65 ML PO (19:41)
[2016-11-21] MEDS ORDERED: PEPCID20 MG PO (19:42)
[2016-11-21] MEDS ORDERED: TOUJEO SOL300 UNIT/1 SUB-Q (19:42)
[2016-11-21] MEDS ORDERED: MUCINEX D ER 11 EACH PO (19:43)
[2016-11-21] MEDS ORDERED: LEVOTHROID (SY50 MCG PO (19:44)
[2016-11-21] MEDS ORDERED: SAW PALMETTO160 MG PO (19:44)
[2016-11-21] MEDS ORDERED: VITAMIN B-650 MG PO (19:44)
[2016-11-21] MEDS ORDERED: HUMALOG100 UNIT/3 SUB-Q (19:46)
[2016-11-21 19:47] LABS: CPK 149 IU/L (35-332)
[2016-11-21] MEDS ORDERED: ULTRAM50 MG PO (19:47)
[2016-11-21] MEDS ORDERED: CELEXA20 MG PO (19:47)
[2016-11-21] MEDS ORDERED: ACTIGALL300 M1 PO (19:48)
[2016-11-21] MEDS ORDERED: HYDRODIURIL25 MG PO (19:48)
[2016-11-21] MEDS ORDERED: LOTRISONE15 GM TOP (19:49)
[2016-11-21] MEDS ORDERED: NITROSTAT0.4 MG SL (19:50)
[2016-11-21] MEDS ORDERED: ZYLOPRIM300 MG PO (19:51)
[2016-11-21] MEDS ORDERED: SYMBICORT 16010.2 GM INH (19:51)
--- NOTE | 2016-11-21 20:12 | NUR ---
Patient is 70 yo male admitted via ambulance from [facility] this evening with increasing dyspnea. uses CPAP and home oxygen at night, is admitted w/CPAP in place for pericardial effusion and bilat pleural effusions. saline lock is noted in left inner forearm without erythema or edema noted site. patient wants to talk. takes his CPAP mask off to answer questions, but encouraged to put it back on as it was more important to wear that than to answer too many questions. education is given as documented. patient denies questions at this time. pneumatics are on bilat calves. call light is within reach. patient watches TV. denies needs at this time. Report is given to CASE Toribio.
[2016-11-21 21:34] LABS: BICARBONATE 29.4 mmol/L (18.0-23.0); PCO2 67 mmHg (35-45)
[2016-11-21 21:38] LABS: PO2 42 mmHg (80-90)
[2016-11-22 02:18] LABS: PCO2 59 mmHg (35-45); PO2 80 mmHg (80-90)
[2016-11-22 02:33] LABS: BASOPHIL % 0.1 %; HEMATOCRIT 32.2 % (37.0-53.0); HEMOGLOBIN 9.7 g/dL (11.0-16.0); IMMATURE GRANULOCYTE % 0.5 %; LYMPHOCYTE # 0.7 K/uL (0.8-4.0); LYMPHOCYTE % 9.2 %; MCH 28.2 pg (27.0-34.0); MCHC 30.1 gm/dL (32.0-36.5); MCV 93.6 fl (83.0-98.0); MONOCYTE # 0.1 K/uL (0.0-1.0); MPV 12.2 fl (9.4-12.4); NEUTROPHIL # (ANC) 6.8 K/uL (1.4-9.0); NEUTROPHIL % 89.2 %; NRBC % 0 /100WBC (0-0.00); PLATELET COUNT 163 K/uL (150-450); RBC 3.44 M/uL (3.50-5.50); RDW-CV 16.8 % (11.9-14.6); WBC 7.7 K/uL (4.0-11.0)
[2016-11-22 03:03] LABS: ALBUMIN 3.3 gm/dL (3.5-5.0); CALCIUM 8.8 mg/dL (8.5-10.5); CREATININE 2.3 mg/dL (0.6-1.3); MAGNESIUM 2.5 mg/dL (1.8-2.6); PHOSPHORUS 4.9 mg/dL (2.5-4.9); TOTAL BILIRUBIN 0.4 mg/dL (0.0-1.5)
[2016-11-22 03:10] LABS: CPK 198 IU/L (35-332)
[2016-11-22 03:11] LABS: ANION GAP 9.8 (10.0-19.0); POTASSIUM 5.8 mMol/L (3.7-5.1)
--- NOTE | 2016-11-22 04:48 | NUR ---
Significant Event: Patient admitted beginning of shift change. Alert and oriented x3. Bedrest. Remains on bipap at 45%fio2. Diminished lung sounds bilaterally. Still complains of dyspnea but states improving. Afebrile. HRs 60s and SBPs 130s-140s. Continent, uses urinal. Groin excoriated with moisture barrier applied. IV fluids running, has 2 left forearm PIVs. Has fentanyl in place to left posterior shoulder. Echo done. IV levaquin started, IV mag given and bumex x1 given. Cooperative with cares. will be up this morning Follow up: has been NPO, possible pericardiocentesis, pulmonology consult, chest ultrasound, V/Q scan to be done today
[2016-11-22 09:59] LABS: INR - (THERAPEUTIC) 1.09 (0.92-1.07); PROTIME 11.5 SECONDS (9.8-11.4)
[2016-11-22 10:09] LABS: ALBUMIN 3.3 gm/dL (3.5-5.0); ANION GAP 12.4 (10.0-19.0); CALCIUM 8.9 mg/dL (8.5-10.5); CREATININE 2.3 mg/dL (0.6-1.3); PHOSPHORUS 4.5 mg/dL (2.5-4.9); POTASSIUM 5.4 mMol/L (3.7-5.1)
--- NOTE | 2016-11-22 10:13 | NUR ---
Diabetes center note: 1000 Provided the Diabetes Management booklet and Diabetes survival Skills Assessment form, asked patient to complete today if possible to assess educational needs, will continue to follow.
[2016-11-22 10:17] LABS: BILIRUBIN URINE NEGATIVE (NEGATIVE); BLOOD URINE 50 /UL (NEGATIVE); COLOR URINE YELLOW (YELLOW); GLUCOSE URINE NEGATIVE (NEGATIVE); KETONE URINE NEGATIVE (NEGATIVE); LEUKOCYTES URINE NEGATIVE /UL (NEGATIVE); NITRITE URINE NEGATIVE (NEGATIVE); PROTEIN URINE 30 mg/dL (NEGATIVE); UROBILINOGEN URINE NORMAL (NORMAL)
[2016-11-22 10:45] LABS: TURBIDITY URINE CLEAR (CLEAR)
[2016-11-22 10:46] LABS: WBC URINE 0-2 #/HPF (NEGATIVE)
[2016-11-22 10:48] LABS: BACTERIA URINE FEW (NEGATIVE); EPITHELIAL URINE 0-2 #/HPF (NEGATIVE); HYALINE CAST URINE 0-2 #/LPF (NEGATIVE); MUCUS URINE 1+ (NEGATIVE); RBC URINE 20-50 #/HPF (NEGATIVE)
--- NOTE | 2016-11-22 13:04 | NUR ---
PATIENT TAKEN VIA BED TO [facility] FOR PERICARDIAL WINDOW PER DR WINTERS. FAMILY SENT WITH PATIENT AND TRANSPORT TEAM WITH QUESTIONS/CONCERNS REGARDING SURGERY. BIPAP REMOVED AND PLACED ON 8L NON-REBREATHER WITH SATS 93% BEFORE EXITING ROOM. VERBAL REPORT GIVEN OVER PHONE TO JENNIFER Godwin PLYWOOD SCARFER TENDER.
[2016-11-22 15:01] LABS: BICARBONATE 24.3 mmol/L (18.0-23.0); PO2 72 mmHg (80-90)
[2016-11-22 15:02] LABS: PCO2 44 mmHg (35-45)
[2016-11-22 16:32] LABS: ALBUMIN 2.9 gm/dL (3.5-5.0); ANION GAP 13.1 (10.0-19.0); CALCIUM 8.3 mg/dL (8.5-10.5); PHOSPHORUS 3.8 mg/dL (2.5-4.9); POTASSIUM 5.1 mMol/L (3.7-5.1)
[2016-11-23 03:58] LABS: ALBUMIN 2.7 gm/dL (3.5-5.0); CALCIUM 8.5 mg/dL (8.5-10.5); MAGNESIUM 2.3 mg/dL (1.8-2.6)
[2016-11-23 03:59] LABS: ANION GAP 8.6 (10.0-19.0); POTASSIUM 5.6 mMol/L (3.7-5.1)
--- NOTE | 2016-11-23 04:10 | NUR ---
Significant Event: Patient A/OX3. FOLLOWS COMMANDS. MOVES ALL EXTREMITIES. HR'S 55-80'S. SBP 110'S-130'S. TMAX 99.0. BIPAP 50% O2 SATS >93%. CLEAR AND DIMINISHED LUNG SOUNDS. R) CT TO SUCTION WITH 320ML OUT, SEROUS/SEROUSANG. GUARDADO TO DD WITH ADEQ UOP. ACTIVE-HYPOACTIVE BS. CLEAR LIQUID DIET, TOLERATING GOOD. L) midline with 100ml/hr of NS. [place] given x1 for pain. Follow up: PCU STATUS/MEDS
[2016-11-23 04:14] LABS: BASOPHIL % 0.1 %; HEMATOCRIT 30.9 % (37.0-53.0); HEMOGLOBIN 9.5 g/dL (11.0-16.0); IMMATURE GRANULOCYTE # 0.1 K/uL (0.0-0.3); IMMATURE GRANULOCYTE % 0.4 %; LYMPHOCYTE # 0.7 K/uL (0.8-4.0); LYMPHOCYTE % 6.2 %; MCH 28.3 pg (27.0-34.0); MCHC 30.7 gm/dL (32.0-36.5); MONOCYTE # 0.6 K/uL (0.0-1.0); MONOCYTE % 4.9 %; MPV 12.6 fl (9.4-12.4); NEUTROPHIL # (ANC) 10.1 K/uL (1.4-9.0); NEUTROPHIL % 88.4 %; NRBC % 0 /100WBC (0-0.00); PLATELET COUNT 169 K/uL (150-450); RBC 3.36 M/uL (3.50-5.50); RDW-CV 16.9 % (11.9-14.6); WBC 11.4 K/uL (4.0-11.0)
--- NOTE | 2016-11-23 15:23 | NUR ---
Significant Event: Assumed cares at 1155. Alert and oriented x3. Follows commands. Up to chair 2 assist, with PT. Denies pain. Mediastinal Chest tube to [place] drain, serous drainage out. L) wrist IV flushes no blood return, R) midline infusing NS at 50 ml/hr. Transferring to PCU room 6336, Nikky to assume cares. Follow up:
--- NOTE | 2016-11-23 18:05 | NUR ---
Transferred cares to Alejandro Ashley RN at 1255. Alert et oriented, no c/o pain. PERRLA. Mediastinal chest tube in place to LESLIE drain, serosang drainage. LS clear et diminished in bilateral lower lobes. O2 sats >90% on 6L O2 via NC. Clear liquid diet, meds whole po without difficulty. De drains clear yellow.
--- NOTE | 2016-11-24 04:27 | NUR ---
Significant Event: A/0 X 3, AMBULATES 1 ASSIST. 02 6L NASAL CANULA DURING DAY, BIPAP 40%FI02 PUT ON AT HS, HE HAS HAD NO COMPLICATIONS WITH THIS, 02 SATS HAVE REMAINED MID/HIGH 90'S. RESPIRATIONS AROUND 24, ALL OTHER VSS, AFEBRILE. ACCU CHECK Q4. COMPRESSION BULB/DRAIN TO LEFT ABD HAD 30 ML OUTPUT. MID ABD DRESSING C/D/I. GUARDADO WITH 2,200 ML OUTPUT. HAS RESTED VERY WELL THIS EVENING, TURNED Q2, DENIED PAIN, NO PAIN MEDS GIVEN. Follow up:
[2016-11-24 12:29] LABS: ALBUMIN 2.6 gm/dL (3.5-5.0); ANION GAP 9.6 (10.0-19.0); CALCIUM 8.6 mg/dL (8.5-10.5); CREATININE 1.5 mg/dL (0.6-1.3); PHOSPHORUS 2.1 mg/dL (2.5-4.9); POTASSIUM 4.6 mMol/L (3.7-5.1)
--- NOTE | 2016-11-24 16:00 | NUR ---
Introduced self and role of care management to pt. he lives in [place] with his in a trailer house with 3-4 steps. He has a 4 wheeled walker and a cane he uses at home. He states he doctors in [facility] with Dr Ayan Huggins. He states he has [facility] and also thru his Medicaid he has a couple gals who are caregivers who does the cooking, cleaning, laundry etc about 3 times a week. I did discuss dc plans and he is hoping for home and denies the need for swingbed or skilled care. I then call Marcia at [facility] and yes he is on services and will resume once he is discharged and to give them a call. WIll assist as needed.
--- NOTE | 2016-11-24 16:17 | NUR ---
Significant Events: Patient is A&Ox3 and cooperative with cares. Patient is a one assist with walker and gaitbelt. Patient has been up in chair the majority of the day. Vital signs: HR 90-100, SBP 120-140, RR 20's. Patient on 4L NC with Bipap at night. Some edema present. One time dose of IV Lasix administered. De present, with 2550 mls of urine out. Bulb suction drain in left upper abdomen, with 35 mls out and dressing C/D/I. Mid-sternal dressing is C/D/I. Results reported to Christina Hilton. DEBBI Fentanyl Patch. Follow Up: Continue as per plan of care. Monitor drain outputs.
[2016-11-24 21:39] LABS: MAGNESIUM 1.7 mg/dL (1.8-2.6)
--- NOTE | 2016-11-25 00:05 | NUR ---
PATIENT WAS TRANSFERED TO ICU AT 2330
--- NOTE | 2016-11-25 00:36 | NUR ---
I WAS CALLED BY TELEMETRY DUE TO HR >200. I IMMEDIATELY WENT TO THE ROOM IN WHICH I OBSERVED THE HR AROUND 220 WITH THE PATIENT SITTING UP IN THE CHAIR. HE A/0 X 3 AND STATED HE FELT OK AND HAD NO PAIN AND RESPONDED APPROPRIATELY. I THEN CALLED A RAPID RESPONSE OVER THE PHONE AND PRESSED BOTH STAFF ASSIST ALARMS AT 2104. WHEN THE FIRST NURSE THAT RESPONDED ENTERED WE TRANSFERED THE PATIENT TO THE BED BY STAND BY ASSIST. OTHER TEAM MEMBERS STARTED ENTERING THE ROOM AND I NOTIFIED DR. WINTERS OF PATIENT'S CONDITION AT 2109. ORDERS WERE GIVEN FOR EKG, STAT POTTASIUM AND MAG, 150 MG BOLUS OF AMIODARONE AND THEN TO RUN IT PER PROTOCOL. THE EKG SHOWED POSSIBLE ST ELEVATION AND I THEN CALLED DR WINTERS BACK AT 2114 TO REPORT THIS RESULT. ORDERS WERE GIVEN TO CALL THE WEB CONTENT DIRECTOR. DR. ARNOLD WAS NOTIFIED AT 2123 AND GAVE ORDERS TO CALL THE ANESTHESIOLOGIST TO GIVE SEDATION TO CARDIOVERT. DR. LUONG ARRIVED ON THE SCENE AND ORDERED 10 MG CARDIZEM AAT 2145 AND 2 MG MORPHINE GIVEN AT 2141 DUE TO PATIENT NOW STATING HE DID HAVE PAIN THAT HE RATED AT A 9. MINIMAL DROP IN HR WAS OBSERVED. ANOTHER 10 MG CARDIZEM GIVEN AT 2145. DR. HAY ARRIVED ON SCENE AROUND 2199 AND ORDERED ANOTHER BOLUS OF 150 MG AMIODARONE WHICH WAS STARTED AT 2208. AFTER THE BOLUS WAS COMPLETED ANESTHESIA INTIATED SEDATION AT 2220 AND THE PATIENT WAS SUCCESSFULLY CARDIOVERTED AT 2225. NEW ORDERS WERE GIVEN FOR HEPARIN TO RUN PER [facility] PROTOCOL, 2 GRAMS MAG AND TO TRANSFER TO ICU. THE PATIENT WAS TRANSFERED VIA BED TO ICU AT 2330. THE PATIENT ALSO EXPRESSED HE WISHES TO NOT NOTIFY HIS UNTIL THE MORNING.
[2016-11-25 00:43] LABS: BASOPHIL % 0.1 %; HEMOGLOBIN 10.6 g/dL (11.0-16.0); IMMATURE GRANULOCYTE % 0.3 %; LYMPHOCYTE # 1.1 K/uL (0.8-4.0); LYMPHOCYTE % 10.6 %; MCH 28.5 pg (27.0-34.0); MCHC 31.2 gm/dL (32.0-36.5); MCV 91.4 fl (83.0-98.0); MONOCYTE # 1.2 K/uL (0.0-1.0); MONOCYTE % 10.7 %; MPV 12.1 fl (9.4-12.4); NEUTROPHIL # (ANC) 8.4 K/uL (1.4-9.0); NEUTROPHIL % 78.3 %; NRBC % 0 /100WBC (0-0.00); PLATELET COUNT 221 K/uL (150-450); RBC 3.72 M/uL (3.50-5.50); RDW-CV 16.9 % (11.9-14.6); WBC 10.8 K/uL (4.0-11.0)
[2016-11-25 05:13] LABS: BASOPHIL % 0.1 %; EOSINOPHIL % 0.2 %; HEMATOCRIT 32.9 % (37.0-53.0); HEMOGLOBIN 10.1 g/dL (11.0-16.0); IMMATURE GRANULOCYTE % 0.4 %; LYMPHOCYTE # 1.5 K/uL (0.8-4.0); LYMPHOCYTE % 17.2 %; MCH 28.7 pg (27.0-34.0); MCHC 30.7 gm/dL (32.0-36.5); MCV 93.5 fl (83.0-98.0); MPV 12.2 fl (9.4-12.4); NEUTROPHIL % 70.1 %; NRBC % 0 /100WBC (0-0.00); PLATELET COUNT 186 K/uL (150-450); RBC 3.52 M/uL (3.50-5.50); WBC 8.5 K/uL (4.0-11.0)
[2016-11-25 05:28] LABS: ALBUMIN 2.4 gm/dL (3.5-5.0); ANION GAP 11.5 (10.0-19.0); CALCIUM 8.7 mg/dL (8.5-10.5); CREATININE 1.4 mg/dL (0.6-1.3); MAGNESIUM 2.1 mg/dL (1.8-2.6); PHOSPHORUS 2.8 mg/dL (2.5-4.9); POTASSIUM 4.5 mMol/L (3.7-5.1)
--- NOTE | 2016-11-25 05:38 | NUR ---
Significant Event: TRANSFERED TO ICU AFTER RAPID RESPONSE FOR HR >200. PATIENT IS NOW SR, HR 80'S. SBP 100-140'S. 4L NC WHILE AWAKE. BIPAP AT 40% OVERNIGHT. NO BM. GOOD UOP. DENIES PAIN. REFUSED TURNS AT TIMES. GAVE 2 GM MAGNESIUM. HEPARIN DRIP CONTINUES AT 1200 UNITS/HR. AMIODARONE AT 0.5MG/MIN. NS AT 50ML/HR. Follow up: CONTINUE TO MONITOR.
--- NOTE | 2016-11-25 11:19 | NUR ---
A-SCREENED D/T LOS 11/22-PERICARDIAL WINDOW 11/24-CARDIOVERTED AND TRANSFER TO ICU HT: 65 IN. CBW: 130.6 KG. IBW 62 KG. BMI: 47.9 CBW IS DOWN FROM ADMIT WT (BOTH ARE BED SCALE WTS). LASIX HAS BEEN GIVEN LABS: NA 142, K+ 4.5, GLU 126, BUN 50, PHOTO EQUIPMENT TECHNICIAN 1.4, ALB 2.4 MEDS: LIPITOR, ZEBETA, PEPCID, LEVAQUIN, DURAGESIC, NOVOLOG (AGG. SS), KLONOPIN, MAG-OX, PRN BOWEL MEDS DIET RX: CONSISTENT CARB. PO INTAKE 75-100%. PT HAS BEEN CHOOSING A GOOD VARIETY OF FOOD; AVG KCAL AND PROTEIN INTAKE ARE MEETING AT LEAST >/=75% OF EST NUTR NEEDS. EST NUTR NEEDS: [id number] KCALS (15-20 KCALS/KG) 124-155 GM PROTEIN (2.0-2.5 GM/KG IBW) D-NOT AT NUTRITION RISK; NO NUTRITION DX IDENTIFIED I-CONTINUE W/CURRENT DIET RX M/E-WILL ASSIST NEEDED
--- NOTE | 2016-11-25 13:04 | NUR ---
Patient alert and oriented x3. Does have chronic N/T to bilat lower ext. Has been SR all shift, SBP stable. Will remain on Amio gtt after protocol finished. Remains on 3L N/C, lungs clear and diminished in the bases, occassional non-productive cough. Pivot transfers to chair with 1 assist and walker. Down to V/Q scan this AM.
[2016-11-25 13:46] LABS: ANION GAP 9.8 (10.0-19.0); CREATININE 1.4 mg/dL (0.6-1.3); POTASSIUM 4.8 mMol/L (3.7-5.1)
--- NOTE | 2016-11-25 17:11 | NUR ---
PATIENT TRANSFERED FROM ICU [id number]. ALERT AND ORIENTED. DISTANT HEART SOUND. LUNGS CLEAR. PATIENT ON 3L O2. MIDLINE RIGHT UPPER ARM. IV LEFT AC. ON A DIABETIC DIET. PATIENT CONTINUES ON HEPARIN DRIP.
--- NOTE | 2016-11-25 18:49 | NUR ---
I HAVE READ AND AGREE WITH CHARTING DONE BY Esme GRESHAM STUDENT NURSE.
--- NOTE | 2016-11-26 05:24 | NUR ---
Significant Event: DENIES PAIN ALL NIGHT. HR INTO RAPID A-FIB WITH HR IN THE 140s TO 150s. PT WAS ASYMPTOMATIC. DR. BATISTA NOTIFIED AND HE ORDERED DIGOXIN 250 MCG IV X1 AND REPEAT AT 0600 AND LOPRESSOR 12.5 MG PO Q6H. HR SLIGHTLY SLOWER BUT STILL MOSTLY IN THE 130s. HEPARIN AND AMIODARONE CONTINUE. Follow up:
[2016-11-26 05:33] LABS: EOSINOPHIL # 0.1 K/uL (0.0-0.5); EOSINOPHIL % 1.1 %; HEMATOCRIT 33.5 % (37.0-53.0); HEMOGLOBIN 10.5 g/dL (11.0-16.0); IMMATURE GRANULOCYTE # 0.1 K/uL (0.0-0.3); IMMATURE GRANULOCYTE % 0.5 %; LYMPHOCYTE % 21.7 %; MCH 28.4 pg (27.0-34.0); MCHC 31.3 gm/dL (32.0-36.5); MCV 90.5 fl (83.0-98.0); MONOCYTE # 0.8 K/uL (0.0-1.0); MONOCYTE % 8.3 %; MPV 12.2 fl (9.4-12.4); NEUTROPHIL # (ANC) 6.2 K/uL (1.4-9.0); NEUTROPHIL % 68.4 %; NRBC % 0 /100WBC (0-0.00); PLATELET COUNT 211 K/uL (150-450); RDW-CV 16.7 % (11.9-14.6); WBC 9.1 K/uL (4.0-11.0)
[2016-11-26 05:58] LABS: ALBUMIN 2.4 gm/dL (3.5-5.0); ANION GAP 10.6 (10.0-19.0); CALCIUM 8.8 mg/dL (8.5-10.5); CREATININE 1.4 mg/dL (0.6-1.3); MAGNESIUM 1.8 mg/dL (1.8-2.6); PHOSPHORUS 2.9 mg/dL (2.5-4.9); POTASSIUM 4.6 mMol/L (3.7-5.1)
--- NOTE | 2016-11-26 16:50 | NUR ---
PATIENT HAS BEEN UP IN RECLINER TODAY MOST OF DAY. HE HAS AMBULATED IN ROOM SEVERAL TIMES TO THE BATHROOM AND TOLERATES WELL BUT IS SLIGHT SOB WHEN RETURNING. PATIENT FLUID BALANCE FOR TODAY IS INTAKE PO/IV [address] HAYES IS AWARE.
--- NOTE | 2016-11-26 16:55 | NUR ---
I HAVE READ AND AGREE WITH CHARTING DONE BY Esme GRESHAM STUDENT NURSE.
[2016-11-27 01:51] LABS: BASOPHIL % 0.1 %; EOSINOPHIL # 0.2 K/uL (0.0-0.5); EOSINOPHIL % 2.6 %; HEMATOCRIT 32.5 % (37.0-53.0); HEMOGLOBIN 10.2 g/dL (11.0-16.0); IMMATURE GRANULOCYTE % 0.3 %; LYMPHOCYTE # 1.8 K/uL (0.8-4.0); LYMPHOCYTE % 18.7 %; MCHC 31.4 gm/dL (32.0-36.5); MCV 92.3 fl (83.0-98.0); MONOCYTE # 0.7 K/uL (0.0-1.0); MONOCYTE % 7.6 %; MPV 11.9 fl (9.4-12.4); NEUTROPHIL # (ANC) 6.6 K/uL (1.4-9.0); NEUTROPHIL % 70.7 %; NRBC % 0 /100WBC (0-0.00); PLATELET COUNT 184 K/uL (150-450); RBC 3.52 M/uL (3.50-5.50); RDW-CV 16.5 % (11.9-14.6); WBC 9.4 K/uL (4.0-11.0)
[2016-11-27 02:04] LABS: ALBUMIN 2.4 gm/dL (3.5-5.0); ANION GAP 10.4 (10.0-19.0); CALCIUM 8.7 mg/dL (8.5-10.5); CREATININE 1.3 mg/dL (0.6-1.3); PHOSPHORUS 3.2 mg/dL (2.5-4.9); POTASSIUM 4.4 mMol/L (3.7-5.1)
--- NOTE | 2016-11-27 05:29 | NUR ---
Significant Event: DENIES PAIN ALL NIGHT. SLEEPING WELL ALL NIGHT. WEARS CPAP AT HS. WAS ON 4L PER NC WHEN AWAKE. HR NSR IN THE 50s-60s ALL NIGHT. POSSIBLE PHLEBITIS NOTED IN THE R) ARM WITH THE MIDLINE. THE AMIODARONE WAS SWITCHED TO THE FOREARM IV AND THE MIDLINE WAS SALINE LOCKED. Follow up:
--- NOTE | 2016-11-27 17:33 | NUR ---
FLUID RESTRICITON OF [address] EPPS. UPPER MIDLINE REMOVED DUE TO INFILTRATION OF AMIODERONE. NEW IV IN LEFT HAND.
--- NOTE | 2016-11-27 18:47 | NUR ---
I HAVE READ AND AGREE WITH CHARTING DONE BY Esme GRESHAM STUDENT NURSE.
[2016-11-28 03:08] LABS: BASOPHIL % 0.1 %; EOSINOPHIL # 0.1 K/uL (0.0-0.5); EOSINOPHIL % 1.4 %; HEMATOCRIT 31.9 % (37.0-53.0); IMMATURE GRANULOCYTE # 0.1 K/uL (0.0-0.3); IMMATURE GRANULOCYTE % 0.5 %; LYMPHOCYTE # 1.6 K/uL (0.8-4.0); LYMPHOCYTE % 15.5 %; MCH 28.5 pg (27.0-34.0); MCHC 31.3 gm/dL (32.0-36.5); MCV 90.9 fl (83.0-98.0); MONOCYTE # 0.9 K/uL (0.0-1.0); MONOCYTE % 8.3 %; MPV 12.5 fl (9.4-12.4); NEUTROPHIL # (ANC) 7.7 K/uL (1.4-9.0); NEUTROPHIL % 74.2 %; NRBC % 0 /100WBC (0-0.00); PLATELET COUNT 182 K/uL (150-450); RBC 3.51 M/uL (3.50-5.50); RDW-CV 16.5 % (11.9-14.6); WBC 10.4 K/uL (4.0-11.0)
[2016-11-28 03:24] LABS: ALBUMIN 2.4 gm/dL (3.5-5.0); ANION GAP 11.5 (10.0-19.0); CALCIUM 8.6 mg/dL (8.5-10.5); CREATININE 1.6 mg/dL (0.6-1.3); PHOSPHORUS 4.1 mg/dL (2.5-4.9); POTASSIUM 4.5 mMol/L (3.7-5.1)
--- NOTE | 2016-11-28 05:31 | NUR ---
A/O. AFIB AT 2100 RATES 140-150s. CARDIZEM STARTED CAUSE 4-5 SEC PAUSES. CARDIZEM STOPPED. HR CURRENTLY 120-130s MD AWARE. 2L NC DURING DAY. 40% BIPAP AT NOC. AMIODARONE DRIP AT CONTINOUS RATE OF 0.5MG/HR. HEPARIN AT 2000 UNITS/HR. NEXT PTTHP AT 0900. DENIES CHEST PAIN. C/O HEADACHE AND NAUESA TYLENOL AND ZOFRAN GIVEN WITH RELIF NOTED.
[2016-11-28 09:06] LABS: BILIRUBIN URINE NEGATIVE (NEGATIVE); BLOOD URINE 250 /UL (NEGATIVE); COLOR URINE OTHER (YELLOW); GLUCOSE URINE NEGATIVE (NEGATIVE); KETONE URINE NEGATIVE (NEGATIVE); LEUKOCYTES URINE 25 /UL (NEGATIVE); NITRITE URINE NEGATIVE (NEGATIVE); PROTEIN URINE 100 mg/dL (NEGATIVE); TURBIDITY URINE 3+ (CLEAR); UROBILINOGEN URINE NORMAL (NORMAL)
[2016-11-28 09:09] LABS: WBC URINE 0-2 #/HPF (NEGATIVE)
[2016-11-28 09:10] LABS: BACTERIA URINE NEGATIVE (NEGATIVE); EPITHELIAL URINE 0-2 #/HPF (NEGATIVE); RBC URINE PACKED FIELD #/HPF (NEGATIVE)
[2016-11-28 10:12] LABS: ALBUMIN 2.5 gm/dL (3.5-5.0); ANION GAP 13.5 (10.0-19.0); CALCIUM 8.8 mg/dL (8.5-10.5); CREATININE 1.6 mg/dL (0.6-1.3); PHOSPHORUS 3.9 mg/dL (2.5-4.9); POTASSIUM 4.5 mMol/L (3.7-5.1)
--- NOTE | 2016-11-28 15:09 | NUR ---
I spoke with pt after getting his pacemaker today and discussed dc plans. He states he is still planning on home. I explained he would benefit from a skilled stay and will not be able to use the left arm for a couple weeks. He states he will do fine and his is there to help get him out of the chair if needed. I explained we can look at [facility] vs swingbed in [facility] or [place]. He states no he will plan on home. I explained I will see how he is doing tomorrow once he is up.
--- NOTE | 2016-11-28 18:09 | NUR ---
Significant events: Patient alert and oriented. Lungs clear and diminsihed. Saturations mid 90's on 2 L. Bowel sounds active. NO BM today. Red color urine, that has gotten more yellow over the course of the shift. Heparin discontinued at 0840. Pacemaker today. Heart rates 58-60. SBP's 114-129. Tylenol this afternoon for pain in neck and shoulders. Follow up: Continue plan of care. Monitor dressing for pacemaker. Discharge home with home health in few days.
[2016-11-29 03:25] LABS: BASOPHIL % 0.1 %; EOSINOPHIL # 0.2 K/uL (0.0-0.5); EOSINOPHIL % 1.8 %; HEMATOCRIT 30.9 % (37.0-53.0); HEMOGLOBIN 9.6 g/dL (11.0-16.0); IMMATURE GRANULOCYTE # 0.1 K/uL (0.0-0.3); IMMATURE GRANULOCYTE % 0.6 %; LYMPHOCYTE # 1.2 K/uL (0.8-4.0); LYMPHOCYTE % 11.4 %; MCH 28.6 pg (27.0-34.0); MCHC 31.1 gm/dL (32.0-36.5); MONOCYTE # 0.9 K/uL (0.0-1.0); MONOCYTE % 8.5 %; MPV 12.6 fl (9.4-12.4); NEUTROPHIL # (ANC) 8.4 K/uL (1.4-9.0); NEUTROPHIL % 77.6 %; NRBC % 0 /100WBC (0-0.00); PLATELET COUNT 176 K/uL (150-450); RBC 3.36 M/uL (3.50-5.50); RDW-CV 16.9 % (11.9-14.6); WBC 10.8 K/uL (4.0-11.0)
[2016-11-29 03:40] LABS: ALBUMIN 2.4 gm/dL (3.5-5.0); ANION GAP 11.7 (10.0-19.0); CALCIUM 8.3 mg/dL (8.5-10.5); CREATININE 1.8 mg/dL (0.6-1.3); PHOSPHORUS 4.2 mg/dL (2.5-4.9); POTASSIUM 4.7 mMol/L (3.7-5.1)
--- NOTE | 2016-11-29 04:58 | NUR ---
Significant Event: A/O x3. Afebrile. Denies pain. VSS on 2L/ wears bipap at night. SBP 116-145. Paced rates 60s. L)subclavian pacemaker site c/d/i, slightly swollen. Left arm in sling, not to use arm. Follow up: continue to monitor per plan of care.
--- NOTE | 2016-11-29 16:19 | NUR ---
Significant events: Patient is alert and oriented. Heart rates paced in 60's. SBP's 103-128. 2+ edema BLLE. Vasotec discontinued. Lungs clear and diminished. Saturations low to mid 90's with 2 L. De discontinued at 1120 today; 50 mL post residual void at 1600. Bowel sounds active. No bowel movement today. Follow up: Needs encouragement to do activities. Hold AM lisinopril 11/30/16. Discharge in near future.
--- NOTE | 2016-11-30 04:38 | NUR ---
Significant Event: A/O x3. Afebrile. Pain in neck/shoulders, gave norco tab x1. Applied ice to left hand/wrist for pain. VSS on 2L. SBP 130-140s. Paced rates in 60s. LS clear/dim. Wears bipap at night. Left subclavian pacemaker site c/d/i. Pt needs encouragement with any activity. Follow up: Lisinopril to be held this AM. Continue to monitor per plan of care.
[2016-11-30 04:42] LABS: BASOPHIL % 0.1 %; EOSINOPHIL # 0.2 K/uL (0.0-0.5); EOSINOPHIL % 1.4 %; HEMATOCRIT 30.6 % (37.0-53.0); HEMOGLOBIN 9.2 g/dL (11.0-16.0); IMMATURE GRANULOCYTE # 0.1 K/uL (0.0-0.3); IMMATURE GRANULOCYTE % 0.6 %; LYMPHOCYTE # 1.1 K/uL (0.8-4.0); LYMPHOCYTE % 10.4 %; MCHC 30.1 gm/dL (32.0-36.5); MCV 93.3 fl (83.0-98.0); MONOCYTE # 1.1 K/uL (0.0-1.0); MONOCYTE % 9.9 %; MPV 12.7 fl (9.4-12.4); NEUTROPHIL # (ANC) 8.4 K/uL (1.4-9.0); NEUTROPHIL % 77.6 %; NRBC % 0 /100WBC (0-0.00); PLATELET COUNT 161 K/uL (150-450); RBC 3.28 M/uL (3.50-5.50); RDW-CV 16.7 % (11.9-14.6); WBC 10.9 K/uL (4.0-11.0)
[2016-11-30 05:02] LABS: ALBUMIN 2.3 gm/dL (3.5-5.0); CALCIUM 8.7 mg/dL (8.5-10.5); CREATININE 1.7 mg/dL (0.6-1.3); PHOSPHORUS 3.7 mg/dL (2.5-4.9)
--- NOTE | 2016-11-30 15:57 | NUR ---
Significant Event: AOx3, temp to 99.0 x1, tachypneic at times, VS otherwise WNL on 2 L per nasal cannula. Lungs dim. Dressing to L) subclavian pacemaker site is C/D/I. L) arm continues to be immobilized. SL x3 to L) AC and hand all flush. No insulin correction this shift. Discussion today with , phys, & CM and patient agrees to placement upon dismissal. Cooperative with cares. Follow up: CM working on placement. Per plan of care. Encourage activity & independence.
[2016-12-01 04:53] LABS: BASOPHIL % 0.1 %; EOSINOPHIL # 0.2 K/uL (0.0-0.5); EOSINOPHIL % 1.4 %; HEMATOCRIT 29.5 % (37.0-53.0); IMMATURE GRANULOCYTE # 0.1 K/uL (0.0-0.3); IMMATURE GRANULOCYTE % 0.6 %; LYMPHOCYTE # 1.4 K/uL (0.8-4.0); LYMPHOCYTE % 13.2 %; MCH 28.3 pg (27.0-34.0); MCHC 30.5 gm/dL (32.0-36.5); MCV 92.8 fl (83.0-98.0); MONOCYTE # 1.2 K/uL (0.0-1.0); MONOCYTE % 11.1 %; MPV 13.1 fl (9.4-12.4); NEUTROPHIL # (ANC) 7.6 K/uL (1.4-9.0); NEUTROPHIL % 73.6 %; NRBC % 0 /100WBC (0-0.00); PLATELET COUNT 165 K/uL (150-450); RBC 3.18 M/uL (3.50-5.50); RDW-CV 16.5 % (11.9-14.6); WBC 10.4 K/uL (4.0-11.0)
[2016-12-01 05:11] LABS: ALBUMIN 2.3 gm/dL (3.5-5.0); CALCIUM 8.8 mg/dL (8.5-10.5); CREATININE 1.8 mg/dL (0.6-1.3); PHOSPHORUS 3.6 mg/dL (2.5-4.9)
--- NOTE | 2016-12-01 05:52 | NUR ---
Significant Event: CONVERTED BACK INTO A-FIB AROUND 2100 WITH HR 120-150'S, GAVE 15 MG CARDIZEM BOLUS AND STARTED CARDIZEM GTT PER PROTOCOL AT 5 UNITS/HR. SBP'S DROPPED BELOW 100, GAVE 1L NS BOLUS OVER 1 HOURS. SBP'S INCRESAED ABOVE 100 AND EVENTUALLY CARDIZEM HAS BEEN TITRATED UP TO 15 MG/HR BUT HR REMAIN IN THE 120'S TO 140'S. BP'S HAVE STABILIZED AND 5 MG IV LOPRESSOR GIVEN AT 0510 BIT HR STILL REMAIN TACHY AVERAGING 130'S. NO PAIN, ASYMPTOMATIC. Follow up:
--- NOTE | 2016-12-01 11:00 | NUR ---
Reviewed chart and called Alisha at [facility], gave update of pt condition, pt back in afib and on cardizem gtt. They can accept on weekend if ready for discharge, or Sunday or whenever ready next week. If ready on weekend our doc needs to call Dr Gomez to accept at [phone], otherwise healthcare science specialist will update them on Sunday.
--- NOTE | 2016-12-01 13:57 | NUR ---
Received message from pt nurse that Dr Frey said pt can go to [facility] tomorrow. I called Martita and let her know pt off [facility] gtt and Dr Frey said ready tomorrow, she called Dr Gomez and then called me back to request physician call him today to accept tomorrow [phone]. I let Martita know we will have come by 1100 to dismiss late morning or right after lunch, she is okay with that, nurse can call report for [phone] and fax orders to [phone], will put that information on chart. Called Dr Frey and let him know they will accept tomorrow but Dr Gomez wants a call today to accept, tried giving him the phone number over the phone but he said put on chart and he will call him later today. Phone number on chart. Let nurse know.
--- NOTE | 2016-12-01 14:06 | NUR ---
Received message from pt nurse that Dr Frey said pt can go to [facility] tomorrow. I called Martita and let her know pt off [facility] gtt and Dr Frey said ready tomorrow, she called Dr Gomez and then called me back to request physician call him today to accept tomorrow [phone]. I let Martita know we will have [facility] ambulance transport at 1100 tomorrow and she is okay with that. Called Lili and let her know as well. Nurse can call report for [phone] and fax orders to [phone], will put that information on chart. Called Dr Frey and let him know they will accept tomorrow but Dr Gomez wants a call today to accept, tried giving him the phone number over the phone but he said put on chart and he will call him later today. Phone number on chart. Called [facility] and set up ambulance transport at 1100 tomorrow. Let nurse know.
--- NOTE | 2016-12-01 17:01 | NUR ---
Significant Event: A/O x3, forgetful at times; cooperative with cares. VSS, SBPs 100-110s, HRs 60-130s, oxygen at 1 liter. Tylenol given x2, last at 1400, for c/o pain in head et back of neck; patient appears to rest after given. Patient converted to SR at 0930; cardizem gtt dc'd at 1200. Up with assist of 2 to chair; therapy working with patient. Patient has not voided this shift; bladder scan performed et 137 ml noted. Patient doesn't feel need to void or any pain/pressure in pelvic area. Follow up: transfer to [facility] by ambulance at 1100 tomorrow
--- NOTE | 2016-12-02 04:11 | NUR ---
Significant Event: Patient is alert/oriented x3. Vital signs stable. Remains in sinus rhythm, paced at times, with HR's in 60's. On 1L O2 with BiPAP at night. Patient experienced urinary retention, bladder scan revealed greater than 360 mL. Order obtained to straight cath x1; 600 mL urine catheterized. Patient is a very heavy 2-3 person assist and needs frequent reinforcement in order to attempt to mobilize himself. Left pacemaker site covered with dressing, C/D/I; pain has been kept under control with ice pack. Immobilizer to left side in place. Follow up: Patient needs to void prior to dismissal. Plan to be dismissed by 1100 to [facility] by ambulance.
[2016-12-02 06:51] LABS: BASOPHIL % 0.2 %; EOSINOPHIL # 0.2 K/uL (0.0-0.5); EOSINOPHIL % 2.5 %; HEMATOCRIT 27.6 % (37.0-53.0); HEMOGLOBIN 8.6 g/dL (11.0-16.0); IMMATURE GRANULOCYTE % 0.5 %; LYMPHOCYTE # 1.2 K/uL (0.8-4.0); LYMPHOCYTE % 14.3 %; MCH 28.5 pg (27.0-34.0); MCHC 31.2 gm/dL (32.0-36.5); MCV 91.4 fl (83.0-98.0); MONOCYTE # 0.9 K/uL (0.0-1.0); MONOCYTE % 10.6 %; MPV 12.7 fl (9.4-12.4); NEUTROPHIL # (ANC) 5.8 K/uL (1.4-9.0); NEUTROPHIL % 71.9 %; NRBC % 0 /100WBC (0-0.00); PLATELET COUNT 167 K/uL (150-450); RBC 3.02 M/uL (3.50-5.50); RDW-CV 16.8 % (11.9-14.6)
[2016-12-02 07:13] LABS: ALBUMIN 2.3 gm/dL (3.5-5.0); ANION GAP 10.7 (10.0-19.0); CALCIUM 8.7 mg/dL (8.5-10.5); CREATININE 2.2 mg/dL (0.6-1.3); PHOSPHORUS 4.3 mg/dL (2.5-4.9); POTASSIUM 4.7 mMol/L (3.7-5.1)
--- NOTE | 2016-12-02 17:05 | NUR ---
Significant Event: A/O x3, cooperative with cares. VSS, SBPs 110-140s, HRs 60s, oxygen at 2 liters. 1 tab of [place] given at 0758 et tylenol at 1507 for c/o generalized pain/achiness; relief noted. Patient voiding in urinal with assistance; 700 ml out this shift. Up to chair with assist of 2. [facility]'t be dismissing today d/t elevated lab values. Follow up: possible d/c to [facility] on Sunday
[2016-12-03 03:26] LABS: BASOPHIL % 0.3 %; EOSINOPHIL # 0.3 K/uL (0.0-0.5); EOSINOPHIL % 4.1 %; HEMATOCRIT 29.4 % (37.0-53.0); IMMATURE GRANULOCYTE % 0.4 %; LYMPHOCYTE # 1.4 K/uL (0.8-4.0); LYMPHOCYTE % 17.5 %; MCH 28.3 pg (27.0-34.0); MCHC 30.6 gm/dL (32.0-36.5); MCV 92.5 fl (83.0-98.0); MONOCYTE # 0.8 K/uL (0.0-1.0); MONOCYTE % 9.5 %; MPV 12.8 fl (9.4-12.4); NEUTROPHIL # (ANC) 5.4 K/uL (1.4-9.0); NEUTROPHIL % 68.2 %; NRBC % 0 /100WBC (0-0.00); PLATELET COUNT 186 K/uL (150-450); RBC 3.18 M/uL (3.50-5.50); RDW-CV 16.3 % (11.9-14.6); WBC 7.9 K/uL (4.0-11.0)
--- NOTE | 2016-12-03 03:38 | NUR ---
Significant Event:Pt aaox3.vss during shift. bi pap at night, lung sound clear/diminished. bowel sounds present x4. no bm this shift. does use urinal 2x needs encouragment with this. voids 750ml during shift. last norco given at 0100 for left shoulder pain. arm immobilizer in place at all times. dressing to pacemaker site is c/d/i. hr 60-63. afebrile. transfers with heavy 2 assist. achs 169 at hs. uses call light approp. Follow up:
[2016-12-03 03:42] LABS: ALBUMIN 2.2 gm/dL (3.5-5.0); ANION GAP 10.6 (10.0-19.0); CALCIUM 8.8 mg/dL (8.5-10.5); CREATININE 2.1 mg/dL (0.6-1.3); MAGNESIUM 2.5 mg/dL (1.8-2.6); PHOSPHORUS 4.9 mg/dL (2.5-4.9); POTASSIUM 4.6 mMol/L (3.7-5.1)
--- NOTE | 2016-12-03 16:39 | NUR ---
Significant Event: A/O x3, cooperative with cares. VSS, SBPs 120-150s, HRs 60s, oxygen at 1 liter; attempted to wean O2 however saturations dropped to 86% et patient was feeling short of breath. No c/ pain; fentanyl patch replaced today to upper R) chest. Up with assist of 1-2 et ember walker to chair et bathroom. Follow up: need to clarify demadex order written today as patient is also on oral lasix; awaiting doctor to come back et see another patient. ? d/c to [facility] tomorrow
--- NOTE | 2016-12-04 03:15 | NUR ---
Significant Event:Pt aaox3.up with 2 assist ember walker gaitbelt. gait unsteady, sob with activity. continues to be on 1L o2 per nasal cannula. lung sound clear/diminished.bowel sounds active, no bm this shift. uses urinal at night. denies pain when asked.wears bipap at night. no prn medication given during shift. 3 iv sites to left hand,wrist,ac all flush well however no blood return. dressing to left pacemaker site c/d/i. dressing to chest area also c/d/i. blood sugars achs.hs blood sugar 166. Follow up:
[2016-12-04 04:57] LABS: BASOPHIL % 0.2 %; EOSINOPHIL # 0.4 K/uL (0.0-0.5); EOSINOPHIL % 4.4 %; HEMATOCRIT 29.4 % (37.0-53.0); HEMOGLOBIN 9.2 g/dL (11.0-16.0); IMMATURE GRANULOCYTE % 0.5 %; LYMPHOCYTE # 1.2 K/uL (0.8-4.0); LYMPHOCYTE % 15.4 %; MCH 28.7 pg (27.0-34.0); MCHC 31.3 gm/dL (32.0-36.5); MCV 91.6 fl (83.0-98.0); MONOCYTE # 0.8 K/uL (0.0-1.0); MONOCYTE % 9.3 %; MPV 12.7 fl (9.4-12.4); NEUTROPHIL # (ANC) 5.6 K/uL (1.4-9.0); NEUTROPHIL % 70.2 %; NRBC % 0 /100WBC (0-0.00); PLATELET COUNT 202 K/uL (150-450); RBC 3.21 M/uL (3.50-5.50)
[2016-12-04 05:09] LABS: ALBUMIN 2.3 gm/dL (3.5-5.0); ANION GAP 12.4 (10.0-19.0); CALCIUM 8.9 mg/dL (8.5-10.5); CREATININE 1.7 mg/dL (0.6-1.3); PHOSPHORUS 3.9 mg/dL (2.5-4.9); POTASSIUM 4.4 mMol/L (3.7-5.1)
--- NOTE | 2016-12-04 12:13 | NUR ---
I spoke with Alisha at [facility] and hoping to get pt there today. I explained waiting on md to round. Dr Paige will be accepting toady and his number is [phone]. I updated Nikky WILLOUGHBY as well. WIll continue to follow.
--- NOTE | 2016-12-04 13:51 | NUR ---
Patient was transferred to [facility] from [place] [facility] where he present with increase shortness of breath, bilateral pleural effusions et pericardial effusion. Pericardical window on 11/22/16, was in ICU afterwards; transferred out to PCU on the . Had a mediastinal chest tube after pericardial window; that has been dc'd incision is open to air with edges approximated. Patient transferred back to ICU on 11/25/16 for HRs 200; back out to PCU on 11/25. Had a rollins; dc'd is voiding per urinal without difficulty. Pacermaker on 11/28; dressing to L) subclavian et L) arm remains in immobilizer. Up with ember walker et assist of 1
--- NOTE | 2016-12-04 15:40 | NUR ---
I did talk with [address] and he spoke with Dr Huff and will accept today. I called Alisha and faxed orders and stated I set up the ambulane for 1400. I did call his and updatd her and I also spoke with him and he agree's. I then set up ambulance and now the time is for a little after 1400. I did updated nursing and the fax cover sheet stated it will be some after 1400 that they leave due to the [place] crew will be taking and will be at [facility] at 1345. WIll continue to follow.
--- NOTE | 2016-12-04 15:42 | NUR ---
Significant Event: A/O x3, cooperative with cares. VSS, SBPs 120-140s, HRs 60s, oxygen at 1 liter. No c/o pain. Up with assist of 1 et hemiwalker; ambulate in room with physical therapy. [facility] squad here to get patient to transfer to [facility]. Follow up:
== END 2016-12-04 15:15 | disposition swing bed (61) | DRG 163 ==
LOC: GICU 18:17 → GPCU 18:17 → GICU 11-22 12:46 → GPCU 11-23 17:23 → GICU 11-24 23:20 → GPCU 11-25 13:38
PROVIDERS: Internal Medicine; Internal Medicine Interventional Cardiology; Internal Medicine Nephrology; Nurse Practitioner Acute Care; Nurse Practitioner Women's Health; Thoracic Surgery (Cardiothoracic Vascular Surgery); ADMIT Hospitalist
PROC: 5A09457 Assistance with Respiratory Ventilation, 24-96 Consecutive Hours, Continuous Positive Airway Pressure (ICD-10-PCS; principal; 2016-11-21)
PROC: B246ZZZ Ultrasonography of Right and Left Heart (ICD-10-PCS; principal; 2016-11-21)
PROC: 0W9D00Z Drainage of Pericardial Cavity with Drainage Device, Open Approach (ICD-10-PCS; 2016-11-22)
PROC: 0T9B70Z Drainage of Bladder with Drainage Device, Via Natural or Artificial Opening (ICD-10-PCS; 2016-11-22)
PROC: 5A2204Z Restoration of Cardiac Rhythm, Single (ICD-10-PCS; 2016-11-24)
PROC: B246ZZZ Ultrasonography of Right and Left Heart (ICD-10-PCS; 2016-11-24)
PROC: 0JH606Z Insertion of Pacemaker, Dual Chamber into Chest Subcutaneous Tissue and Fascia, Open Approach (ICD-10-PCS; 2016-11-28)
PROC: 02H63JZ Insertion of Pacemaker Lead into Right Atrium, Percutaneous Approach (ICD-10-PCS; 2016-11-28)
PROC: 02HK3JZ Insertion of Pacemaker Lead into Right Ventricle, Percutaneous Approach (ICD-10-PCS; 2016-11-28)
DX: J44.1 Chronic obstructive pulmonary disease with (acute) exacerbation (principal); J96.21 Acute and chronic respiratory failure with hypoxia; I31.4 Cardiac tamponade; I50.33 Acute on chronic diastolic (congestive) heart failure; I31.3 Pericardial effusion (noninflammatory); J90 Pleural effusion, not elsewhere classified; Z68.43 Body mass index [BMI] 50.0-59.9, adult; N17.9 Acute kidney failure, unspecified; I13.0 Hypertensive heart and chronic kidney disease with heart failure and stage 1 through stage 4 chronic kidney disease, or unspecified chronic kidney disease; J98.11 Atelectasis; N18.3 Chronic kidney disease, stage 3 (moderate); E11.649 Type 2 diabetes mellitus with hypoglycemia without coma; E66.01 Morbid (severe) obesity due to excess calories; G47.33 Obstructive sleep apnea (adult) (pediatric); E11.22 Type 2 diabetes mellitus with diabetic chronic kidney disease; I49.5 Sick sinus syndrome; I25.10 Atherosclerotic heart disease of native coronary artery without angina pectoris; I25.2 Old myocardial infarction; F32.9 Major depressive disorder, single episode, unspecified; Z87.891 Personal history of nicotine dependence; I48.0 Paroxysmal atrial fibrillation
CPT/HCPCS: A9539; A9540; C1751; C1785; C1898; J0282; J0690; J1160; J1644; J1940; J1956; J2250; J2270; J2405; J2920; J3010; J3475; J7030; J7050; J7512; J7612

== ENCOUNTER → 2016-12-04 | Outpatient (CLI) | payer MEDICARE, MEDICAID ==
[~2016-12-04] MED LIST: ACTIGALL300 M1 PO; ASPIRIN EC81 MG PO; BREO ELLIPTA 21 EACH INH; CELEXA20 MG PO; CLARITIN10 MG PO; COLACE100 MG PO; CORDARONE,PACE200 MG PO; DELTASONE20 MG PO; DEMADEX20 MG PO; DITROPAN XL10 MG PO; DULCOLAX10 MG R; DURAGESIC 50MC50 MCG TRANS; FLOMAX0.4 MG PO; HUMALOG100 UNIT/1 SUB-Q; HUMALOG100 UNIT/3 SUB-Q; HYDRODIURIL25 MG PO; KLONOPIN1 MG PO; LANOXIN (DIGI125 MCG PO; LEVOTHROID (SY50 MCG PO; LIPITOR80 MG PO; LOPRESSOR50 MG PO; LOTRISONE15 GM TOP; MAG-OX-400(241400 MG PO; MILK OF MA400 MG/5 M PO; MOBIC15 MG PO; MUCINEX D ER 11 EACH PO; MUCINEX600 MG PO; NITROSTAT0.4 MG SL; NORCO 5-325 TA1 EACH PO; NORVASC5 MG PO; PEPCID20 MG PO; PRILOSEC20 MG PO; PRINIVIL (ZESTRI5 MG PO; PROMETH-CODEIN 65 ML PO; SAW PALMETTO160 MG PO; SIMVASTATIN10 MG PO; SPIRIVA HANDIHA1 KIT INH; SYMBICORT 16010.2 GM INH; TOUJEO SOL300 UNIT/1 SUB-Q; TYLENOL WITH C1 EACH PO; TYLENOL325 MG PO; ULTRAM50 MG PO; VITAMIN B-12100 MCG PO; VITAMIN B-650 MG PO; VITAMIN D-32000 UNI1 PO; WELCHOL 625MG625 MG PO; XARELTO15 MG PO; ZYLOPRIM300 MG PO
== END | disposition disaster alternative care site (69) ==
LOC: GAMB 15:08
DX: J98.9 Respiratory disorder, unspecified (principal); J90 Pleural effusion, not elsewhere classified; I31.3 Pericardial effusion (noninflammatory); I10 Essential (primary) hypertension; I21.3 ST elevation (STEMI) myocardial infarction of unspecified site; J44.9 Chronic obstructive pulmonary disease, unspecified; J45.909 Unspecified asthma, uncomplicated; K21.9 Gastro-esophageal reflux disease without esophagitis; E66.9 Obesity, unspecified; E11.9 Type 2 diabetes mellitus without complications; R06.02 Shortness of breath; Z79.899 Other long term (current) drug therapy
CPT/HCPCS: A0422; A0425; A0428

== ENCOUNTER 2017-03-01 17:00 | Inpatient (IN) | payer MEDICARE, MEDICAID ==
[~2017-03-01] VITALS: Ht 167.6 cm; Wt 122.3 kg
--- NOTE | ~2017-03-01 | HP ---
PATIENT'S NAME: PRIYANKA HECK [facility] AGE: 71 Y [address] ROOM: [address] [address] LOCATION: [facility]PCU ADMIT DATE: 03/01/2017 History & Physical DISCHARGE DATE: FAMILY PHYSICIAN: PHYSICIAN, UNKNOWN ATTENDING PHYSICIAN: Xavier Silva DATE OF SERVICE: 03/01/2017 CHIEF COMPLAINT: Acute kidney injury. HISTORY OF PRESENTING ILLNESS: This is a 71-year-old white male with history of chronic hypoxic respiratory failure, chronic diastolic heart failure, and chronic kidney disease, was transferred to [facility] from [place] with worsening renal function. Briefly, he had been taken to the emergency room yesterday and subsequently admitted because his home health nurse noticed a fever. Initial workup was unyielding. He was initially normotensive. His baseline creatinine is around 1.7, and at the time he was admitted, it was 2.1. He did receive some supportive cares including some IV fluids. However, today his creatinine was increased at 2.24. Nursing staff noticed a sudden drop in blood pressure readings and became concerned. At that point, it was requested that he be transferred here for definitive evaluation and management. He has not been symptomatic over the entire episode. He relates that he was unsure about why he was taken to the hospital in the first place. He relates that he has been feeling about per his usual for several weeks. He denies noticing any fevers, chills, or sweats. He denies headaches, dizziness, or lightheadedness. He does report shortness of breath, but thinks that it is improved. He indicates that his oxygen demands have decreased from 3 L to 2 L. He eats and drinks normally, but typically only a couple of times a day. He denies chest pain or abdominal pain. He stools regularly and stooled last this morning. He does admit to urinary frequency and urgency, but denies dysuria. He ambulates, but only minimally. He has not fallen. No numbness, tingling, or weakness in his extremities or any other associated physical or constitutional complaints. ALLERGIES: NO KNOWN DRUG ALLERGIES. PAST MEDICAL HISTORY: Illnesses: 1. Chronic hypoxic and hypercapnic respiratory failure. PATIENT'S NAME: PRIYANKA HECK [facility] AGE: 71 Y [address] ROOM: [address] [address] [facility] AD[facility] DATE: 03/01/2017 History & Physical DISCHARGE DATE: FAMILY PHYSICIAN: PHYSICIAN, UNKNOWN ATTENDING PHYSICIAN: Xavier Silva 2. Chronic diastolic congestive heart failure. 3. COPD. 4. Paroxysmal atrial fibrillation. 5. Diabetes mellitus type 2. 6. Morbid obesity. 7. Chronic kidney disease, stage III. 8. Sick sinus syndrome, status post permanent pacemaker placement, December 2016. 9. BPH. 10. Mood lability. 11. Chronic gait instability. CURRENT MEDICATIONS: 1. Lisinopril 5 mg p.o. q. day. 2. Lipitor 80 mg p.o. at bedtime. 3. Ditropan XL 10 mg p.o. b.i.d. 4. Tylenol 325 mg 2 tablets p.o. q.4 hours p.r.n. pain or fever. 5. WelChol 625 mg p.o. b.i.d. 6. Milk of magnesia p.r.n. 7. Dulcolax suppository 10 mg [place] q. day p.r.n. 8. Digoxin 125 mcg p.o. q. day. 9. Mucinex 600 mg p.o. b.i.d. 10. Aspirin 81 mg p.o. q. day. 11. Amiodarone 200 mg p.o. b.i.d. 12. Breo Ellipta 1 puff daily. 13. Magnesium 400 mg p.o. t.i.d. 14. [place] 5/325 one tablet p.o. q.4 hours p.r.n. 15. Colace 100 mg p.o. b.i.d. 16. Symbicort 160/4.5 one puff daily. 17. Lopressor 25 mg p.o. b.i.d. 18. Humalog insulin per sliding scale. 19. Demadex 20 mg q. Sunday, Sunday, Sunday. 20. Prilosec 20 mg p.o. q. day. 21. Spiriva 1 puff daily. 22. Nitrostat p.r.n. 23. Synthroid 50 mcg p.o. q. day. 24. Claritin 10 mg p.o. q. day. 25. HCTZ 25 mg p.o. q. day. 26. Fentanyl 50 mcg apply and change daily. 27. Vitamin B12 100 mcg p.o. q. day. 28. Klonopin 1 mg p.o. at bedtime. 29. Celexa 20 mg p.o. q. day. 30. Vitamin D3 2000 units p.o. q. day. 31. Flomax 0.4 mg p.o. at bedtime. 32. Allopurinol 300 mg p.o. q. day. PATIENT'S NAME: PRIYANKA HECK [facility] AGE: 71 Y [address] ROOM: [facility] [place] [address] [facility] AD[facility] DATE: 03/01/2017 History & Physical DISCHARGE DATE: FAMILY PHYSICIAN: PHYSICIAN, UNKNOWN ATTENDING PHYSICIAN: Xavier Silva FAMILY HISTORY: Significant for heart disease in his father who at the age of 73. Mother lived to the age of 98. SOCIAL HISTORY: He is and lives in a trailer in [place] with his . He does have a significant past history of smoking, perhaps 50 pack years, but has been quit for 35 years. He does have significant secondhand exposure as his smokes in the house. There is no significant history of alcohol use. REVIEW OF SYSTEMS: As per HPI. All other organ systems reviewed and are negative. OBJECTIVE: VITAL SIGNS: Temperature 98.7, pulse 60, respirations 24, blood pressure 112/60, O2 saturation 91% on 2 L. GENERAL: He is frail, anxious, but not ill appearing, lying in the bed, in no acute distress. He is little disheveled. SKIN: Supple, pink, warm, dry. There are no obvious rashes. HEENT: Otherwise, normocephalic. Sclerae are nonicteric. Pupils equal, round, and reactive to light and accommodation. Extraocular movements appear intact. Nasal turbinates normal in appearance. Oropharynx clear. Mucous membranes are pink and moist. Dentition appears intact. NECK: Supple. Plethoric and obese. No masses or adenopathy. No thyromegaly. No JVD. CHEST: Chest wall is symmetrical. HEART: Regular with occasional extrasystoles. Grade 1-2/6 systolic ejection murmur. LUNGS: Diminished at the bases, but no crackles, no wheezes. No areas of consolidation. ABDOMEN: Soft, morbidly obese. No masses or hepatosplenomegaly. : Not done. RECTAL: Not done. EXTREMITIES: Display trace pitting edema. No cyanosis. NEUROLOGICAL: He is a little [id number]. Mentation is slowed, but there are no focal deficits. LABORATORY AND X-RAY DATA: From [place]: A CBC showed a white blood cell count 10.05, hemoglobin of 10.1, hematocrit 31.5, platelets 158. Chemistries revealed BUN and creatinine of 42 and 2.24. Sodium and potassium 141 and 3.7, chloride and CO2 are 105 and 28.6, calcium 8.5, glucose was 111. AST/ALT 26 and 19, bilirubin 0.4. Urinalysis revealed 0 to 2 WBCs and 0 to 2 RBCs. Lactate was 1.05. Procalcitonin was 0.18. PATIENT'S NAME: PRIYANKA HECK [facility] AGE: 71 Y [address] ROOM: [address] [address] [facility] AD[facility] DATE: 03/01/2017 History & Physical DISCHARGE DATE: FAMILY PHYSICIAN: PHYSICIAN, UNKNOWN ATTENDING PHYSICIAN: Xavier Silva ASSESSMENT AND PLAN: 1. Acute kidney injury. I suspect he is a little prerenal. We will hold the CHACHO inhibitor and continue with IV fluids. We will get renal ultrasound to assess the possibility of an obstructive process. We will also bladder scan him tonight as he does have a significant history of benign prostatic hypertrophy. Depending on his progress, we will consider Nephrology evaluation. 2. Febrile illness, resolved. Initial workup was benign. He does not have any residual fever or focalizing symptoms. We will repeat blood cultures here, lactate, and procalcitonin and follow up on those when the results are known. Additionally, get a sedimentation rate and C-reactive protein. 3. Chronic hypoxic respiratory failure, multifactorial, stable and essentially at baseline. Encourage good pulmonary hygiene. We will monitor his fluid volume balance closely. 4. Chronic diastolic congestive heart failure, also relatively well compensated. He appears to be a little bit prerenal. We will continue with careful IV fluid hydration therapy. 5. Paroxysmal atrial fibrillation. Appears to be rate controlled and currently in a paced rhythm. He appears to have been taken off anticoagulation at some point. We will review that and address with Cardiology if necessary. 6. Diabetes mellitus type 2. We will manage with Accu-Chek's and sliding scale insulin. 7. Moderate protein-calorie malnutrition. We will need to work on some long- term strategies including balanced dietary intake, calorie reduction, increased exercise, etc. 8. Morbid obesity. As above, encourage mobilization and balanced dietary intake. 9. Benign prostatic hypertrophy. Continue the Flomax. We will await bladder scan and renal ultrasound and follow up on those when the results are known. 10. Deep venous thrombosis prophylaxis. We will follow the VTE protocol. MD DEISY HAGEN/melody /[id number] D: [id number] T: [id number] HISTORY & PHYSICAL
--- NOTE | ~2017-03-01 | DS ---
PATIENT'S NAME: PRIYANKA HECK [facility] AGE: 71 Y [address] ROOM: [facility] [place], [place] [address] LOCATION: GPCU ADMIT DATE: 03/01/2017 Discharge Summary DISCHARGE DATE: 03/03/2017 FAMILY PHYSICIAN: Rodney Huggins MD ATTENDING PHYSICIAN: Xavier Silva ADMISSION DIAGNOSIS: Acute kidney injury, hypotension. DISCHARGE DIAGNOSES: Acute renal failure on chronic kidney disease, stage 3, insulin-dependent type 2 diabetes, heart failure with preserved ejection fraction without exacerbation, paroxysmal atrial fibrillation, chronic obstructive pulmonary disease, chronic hypoxic respiratory failure, gout, essential hypertension, depression with anxiety, vitamin B12 deficiency, hypothyroidism, benign prostatic hypertrophy with urinary retention, overactive bladder, opioid dependence, morbid obesity with body mass index of 43, and hyperlipidemia. PROCEDURES PERFORMED: None. CONSULTATIONS: None. PRESENTING COMPLAINTS: This is a 71-year-old male with history as noted above who was transferred to [facility] from [place] for worsening renal function after Home Health nurse had noticed a single fever and registered a low blood pressure. HOSPITAL COURSE: Following transfer from [facility] and admission here at [facility], the patient was not noted to have significant issues with hypotension; it is thought that potentially this was a blood pressure cuff issue on the initial read. Also, the patient was without further fevers throughout stay. Of note, creatinine baseline around 1.7, secondary to longstanding diabetes, had been as high as 2.2, and the patient did receive IV fluids at outside facility, creatinine upon arrival here was 2.24. In addition, the patient had noted stable recent oxygen requirements usually 2 to 3 liters via nasal cannula [id number]. Upon arrival to our facility, the patient had noted really no complaints. He is a questionable historian, but was unable to endorse new or recent fevers or other evidence of infectious etiology such as ERNIE. Remainder of hospital course detailed below by problem. 1. Acute kidney injury, likely prerenal etiology, CHACHO inhibitors were held, gentle IV fluid resuscitation, which was stopped on day prior to discharge, renal ultrasound did not show any significant obstruction. However, the patient was noted to have elevated postvoid residuals and struggled with voiding prompting De catheter placement. This was pulled after 1 day and the patient was able to void independently. He PATIENT'S NAME: PRIYANKA HECK [facility] AGE: 71 Y [address] ROOM: [facility] [place], [place] [address] LOCATION: GPCU ADMIT DATE: 03/01/2017 Discharge Summary DISCHARGE DATE: 03/03/2017 FAMILY PHYSICIAN: Rodney Huggins MD ATTENDING PHYSICIAN: Xavier Silva does take Flomax for known BPH as well as oxybutynin for overactive bladder. Creatinine on the date of discharge is 1.8, back to baseline. 2. Reported febrile illness. The patient without any significant notable pulmonary symptoms, no intraabdominal discomfort. Workup included negative blood cultures, essentially equivocal procalcitonin at 0.17, lactate of 0.7, white count on arrival here was noted to be 11.1. No further fevers were witnessed during the patient's stay without development of any further contributing symptoms. 3. Chronic hypoxic respiratory failure. The patient was stable, saturating in low 90s, on morning of discharge, on actually room air briefly, but again will continue his home oxygen as needed. No concern during stay for exacerbation of known heart failure with preserved ejection fraction. 4. Paroxysmal atrial fibrillation, rate-controlled and stable throughout stay. 5. Diabetes mellitus, type 2, with nephropathy and insulin-dependence, glucose stable and, morning of discharge, was 101. 6. Urinary retention. This was transient and will need to be followed upon; however, did continue Flomax upon discharge. The patient was voiding without difficulty and no evidence as noted of obstruction on renal ultrasound. 7. Opioid dependence. The patient was noted to be somnolent in the evening of admission prompting to hold his fentanyl patch. This had resolved at the time of discharge and it was felt that this was safe to resume at home dose and will need to be further titrated as deemed necessary by primary care physician. CONDITION: Stable. DISCHARGE PHYSICAL EXAMINATION: VITAL SIGNS: Exam on date of discharge including most recent vitals include temp 98.0, pulse 71, respiratory rate 12, blood pressure 150/82, and 97% on 2 liters of oxygen via nasal cannula. GENERAL: Exam on date of discharge, alert, oriented, in no acute distress, comfortable, and sitting up in chair. NECK: Unable to assess JVD due to neck size. CARDIOVASCULAR: Regular rate and rhythm with distant heart sounds without murmur appreciated. LUNGS: Clear to auscultation bilaterally off oxygen at time of exam with normal respiratory effort. ABDOMEN: Obese, soft, nontender, nondistended. EXTREMITIES: Trace bilateral lower extremity edema. DISPOSITION: Home today with Home Health previously arranged. DISCHARGE MEDICATIONS: PATIENT'S NAME: PRIYANKA HECK [facility] AGE: 71 Y [address] ROOM: [place] [address] LOCATION: GPCU ADMIT DATE: 03/01/2017 Discharge Summary DISCHARGE DATE: 03/03/2017 FAMILY PHYSICIAN: Rodney Huggins MD ATTENDING PHYSICIAN: Xavier Silva 1. Allopurinol 300 mg p.o. daily. 2. Amiodarone 200 mg p.o. b.i.d. 3. Lisinopril 5 mg daily. 4. Aspirin 81 mg daily. 5. Cholecalciferol 2000 units p.o. daily. 6. Colesevelam 625 mg (Welchol) p.o. twice daily for diabetes. 7. Promethazine Codeine cough syrup 5 to 10 mL p.o. q.6 h. p.r.n. 8. Citalopram 20 mg p.o. daily. 9. Clonazepam 1 mg p.o. nightly. 10. Vitamin B12 tablet 100 mcg p.o. daily. 11. Digoxin 125 mcg p.o. daily. 12. Docusate 100 mg p.o. twice daily. 13. Famotidine 20 mg twice daily. 14. Guaifenesin 600 mg tab 1 tab p.o. twice daily. 15. Insulin lispro via sliding scale per chart. 16. Insulin glargine 20 units subcu daily at 8 p.m. 17. Levothyroxine 50 mcg p.o. daily. 18. Loratadine 10 mg p.o. daily. 19. Magnesium oxide 400 mg p.o. t.i.d. 20. Metoprolol tartrate 25 mg p.o. twice daily. 21. Omeprazole 20 mg p.o. daily. 22. Pyridoxine 50 mg p.o. daily. 23. Rivaroxaban 15 mg p.o. daily at 6 p.m. 24. Flomax 0.4 mg p.o. nightly. 25. Fluticasone vilanterol (Breo Ellipta) 1 puff inhaled daily. 26. Tiotropium bromide 1 vial daily. 27. Magnesium hydroxide (milk of mag) 30 mL p.o. daily. 28. Torsemide 20 mg p.o. 3 days a week. 29. Oxybutynin 10 mg p.o. b.i.d. 30. Fentanyl 50 mcg patch every 72 hours. 31. Hydrochlorothiazide 25 mg daily. 32. Clotrimazole topical to affected areas daily as needed. 33. NitroTab as needed. 34. Symbicort. 35. Hydrocodone. 36. Acetaminophen. 37. Tylenol. 38. Bisacodyl. 39. Atorvastatin 80 mg daily. DISCHARGE INSTRUCTIONS: The patient is to monitor weight and report to PCP in 1 week with repeat BMP to follow renal function at that visit. TIME: I spent 35 minutes on date of discharge coordinating discharge plans with the patient and care team. PATIENT'S NAME: PRIYANKA HECK [facility] AGE: 71 Y [address] ROOM: [place] [address] LOCATION: GPCU ADMIT DATE: 03/01/2017 Discharge Summary DISCHARGE DATE: 03/03/2017 FAMILY PHYSICIAN: Rodney Huggins MD ATTENDING PHYSICIAN: Xavier Silva JOSEPH CARRASCO MD JDS/modl /[id number] d: 03/04/17 0015 t: 03/04/17 1543, DISCHARGE SUMMARY
[~2017-03-01 17:00] MED LIST changes: -ASPIRIN EC81 MG PO; -COLACE100 MG PO; -CORDARONE,PACE200 MG PO; -DULCOLAX10 MG R; -HUMALOG100 UNIT/1 SUB-Q; -LANOXIN (DIGI125 MCG PO; -LIPITOR80 MG PO; -MILK OF MA400 MG/5 M PO; -MUCINEX600 MG PO; -NORCO 5-325 TA1 EACH PO; -TYLENOL325 MG PO; -XARELTO15 MG PO
--- NOTE | 2017-03-01 19:03 | NUR ---
Pt is 71 y/o male admit for acute kidney injury for hospitalist. Denies allergies to medications. Resides at home with his . Hx htn,hypercholest, angina,CAD,hypercholest,edema,[place],stents,angioplasty,COPD,pneumonia,DM,O2 at noc and PRN during day,sleep apnea-CPAP,gerd,ulcer,depression. Pt alert and oriented x3. He has been in the [facility] the past 2 days. He states he had a headache,BP was low and he was voiding in frequent tiny amts.
[2017-03-01] MEDS ORDERED: CORDARONE,PACE200 MG PO (19:18)
[2017-03-01] MEDS ORDERED: ASPIRIN EC81 MG PO (19:19)
[2017-03-01] MEDS ORDERED: BREO ELLIPTA 21 EACH INH (19:19)
[2017-03-01] MEDS ORDERED: CLARITIN10 MG PO (19:23)
[2017-03-01] MEDS ORDERED: NORCO 5-325 TA1 EACH PO (19:30)
[2017-03-01] MEDS ORDERED: COLACE100 MG PO (19:34)
[2017-03-01] MEDS ORDERED: LANOXIN (DIGI125 MCG PO (19:34)
[2017-03-01] MEDS ORDERED: MUCINEX600 MG PO (19:35)
[2017-03-01] MEDS ORDERED: LEVOTHROID (SY50 MCG PO (19:37)
[2017-03-01] MEDS ORDERED: TOUJEO SOL300 UNIT/1 SUB-Q (19:37)
[2017-03-01] MEDS ORDERED: TYLENOL325 MG PO (19:38)
[2017-03-01] MEDS ORDERED: MILK OF MA400 MG/5 M PO (19:38)
[2017-03-01] MEDS ORDERED: HUMALOG100 UNIT/1 SUB-Q (19:40)
[2017-03-01] MEDS ORDERED: DULCOLAX10 MG R (19:41)
[2017-03-01] MEDS ORDERED: XARELTO15 MG PO (19:45)
--- NOTE | 2017-03-02 03:43 | NUR ---
VSS ON 2L PER N/C. TO THE FLOOR AT 1820 FROM [place]. BLADDER SCAN SHOWED >200 RESIDUAL. GUARDADO INSERT. 575 YELLOW URINE. TROPONIN ELEVATED AT 0.101 ON ADMIT BUT TRENDS DOWN TO 0.088. DIABETIC AC/HS ACCUCHECKS. NO C/O PAIN.
[2017-03-02 07:56] LABS: BASOPHIL % 0.3 %; EOSINOPHIL # 0.5 K/uL (0.0-0.5); EOSINOPHIL % 4.2 %; HEMATOCRIT 30.4 % (37.0-53.0); HEMOGLOBIN 9.8 g/dL (11.0-16.0); IMMATURE GRANULOCYTE # 0.1 K/uL (0.0-0.3); IMMATURE GRANULOCYTE % 0.5 %; LYMPHOCYTE # 3.3 K/uL (0.8-4.0); LYMPHOCYTE % 29.7 %; MCH 30.1 pg (27.0-34.0); MCHC 32.2 gm/dL (32.0-36.5); MCV 93.3 fl (83.0-98.0); MONOCYTE # 0.8 K/uL (0.0-1.0); MONOCYTE % 6.8 %; MPV 12.1 fl (9.4-12.4); NEUTROPHIL # (ANC) 6.5 K/uL (1.4-9.0); NEUTROPHIL % 58.5 %; NRBC % 0 /100WBC (0-0.00); PLATELET COUNT 136 K/uL (150-450); RBC 3.26 M/uL (3.50-5.50); RDW-CV 17.1 % (11.9-14.6); WBC 11.1 K/uL (4.0-11.0)
[2017-03-02 08:14] LABS: ALBUMIN 2.6 gm/dL (3.5-5.0); ANION GAP 10.8 (10.0-19.0); CALCIUM 7.7 mg/dL (8.5-10.5); CREATININE 2.2 mg/dL (0.6-1.3); POTASSIUM 3.8 mMol/L (3.7-5.1); TOTAL PROTEIN 6.6 g/dL (6.0-8.4)
[2017-03-02 08:16] LABS: TOTAL BILIRUBIN 0.3 mg/dL (0.0-1.5)
[2017-03-02] MEDS ORDERED: LIPITOR80 MG PO (10:58)
--- NOTE | 2017-03-02 12:38 | NUR ---
Introduced self and CM role to [place]. He tells me that he lives in [place] with his and he plans on returning home when he is medically cleared to do so. Wellington says that he gets around with a FWW or a cane at home. He does all of his own medications at baseline and if he needs any help then he has his assist him. He also says that he has [facility] on board, however he can't tell me which agency he has come into help him out. Let him know that I would look back in past CM notes to see if I could figure it out. He was fine with this. PCP is Dr.Tom Huggins. He denies any other questions, needs or concerns. I reviewed Toshia[facility] CM [facility], [facility] I phoned over to [facility], talked with Sara. She tells me that they do have [place] on services and they will continue to follow him when he goes home. They currently only provide RN services, but state that they can have PT/OT evaluate him when he comes home as well to make sure that his strengh is good. Let her know that this would be fine. I marked resume [facility] on his dismissal paperwork. Also left a sticky note with the reminder to call/fax in dismissal orders to [facility] when he was dismissed. , . Also left a fax cover letter in his chart as well for nursing to refer to incase he would go home over the weekend. No other questions needs or concerns. Left name on Toshia' whiteboard incase he would have any other issues come up. CM to continue to follow and assist. Plan home with [facility] upon dismissal.
--- NOTE | 2017-03-03 04:48 | NUR ---
Significant events: Pt A/Ox3, impulsive at times. VSS. On 2L/NC. Up 2PA. Void per urinal. Milk of mag given, no results. NS at 75mL/hr. No complaints of pain. Possible DC today. Slept well.
[2017-03-03 05:39] LABS: ANION GAP 10.8 (10.0-19.0); CALCIUM 7.9 mg/dL (8.5-10.5); CREATININE 1.8 mg/dL (0.6-1.3); POTASSIUM 3.8 mMol/L (3.7-5.1)
== END 2017-03-03 13:50 | disposition disaster alternative care site (69) | DRG 292 ==
LOC: GPCU 18:22
PROVIDERS: Internal Medicine; ADMIT Family Medicine
DX: I13.0 Hypertensive heart and chronic kidney disease with heart failure and stage 1 through stage 4 chronic kidney disease, or unspecified chronic kidney disease (principal); N17.9 Acute kidney failure, unspecified; J96.11 Chronic respiratory failure with hypoxia; E44.0 Moderate protein-calorie malnutrition; J96.12 Chronic respiratory failure with hypercapnia; I48.0 Paroxysmal atrial fibrillation; E11.22 Type 2 diabetes mellitus with diabetic chronic kidney disease; Z68.41 Body mass index [BMI] 40.0-44.9, adult; E53.8 Deficiency of other specified B group vitamins; F32.9 Major depressive disorder, single episode, unspecified; I50.32 Chronic diastolic (congestive) heart failure; J44.9 Chronic obstructive pulmonary disease, unspecified; N40.1 Benign prostatic hyperplasia with lower urinary tract symptoms; N18.3 Chronic kidney disease, stage 3 (moderate); Z79.01 Long term (current) use of anticoagulants; E66.01 Morbid (severe) obesity due to excess calories; Z95.0 Presence of cardiac pacemaker; R26.81 Unsteadiness on feet; R45.86 Emotional lability; Z79.82 Long term (current) use of aspirin; R39.15 Urgency of urination; R35.0 Frequency of micturition; F41.9 Anxiety disorder, unspecified; E03.9 Hypothyroidism, unspecified; N32.81 Overactive bladder
CPT/HCPCS: J7030